=== PATIENT | female | born 1945 | race Caucasian/White ===

== ENCOUNTER 2016-11-17 10:35 | Outpatient (RCR) | payer MEDICARE | END 2016-12-07 09:13 | disposition home or self-care (01) | PROVIDERS: ATTEND Internal Medicine | DX: M54.2 Cervicalgia (principal); M54.6 Pain in thoracic spine; Z91.81 History of falling ==

== ENCOUNTER → 2017-01-17 | Outpatient (CLI) | payer MEDICARE ==
--- OUTSIDE RECORDS SUMMARY | 2017-01-17 12:54 | XMS REPORT | Continuity of Care Document ---
Author Author [facility] Organization [facility] Address Unknown Phone Unavailable Allergies Active Description Code Type Severity Reaction Onset Reported/Identified Relationship to Patient Clinical Status Yes ERTHROMYCIN' ERTHROMYCIN' Unknown N/A 08/07/2012 Yes SULFA SULFA Unknown N/A 08/07/2012 Medications Problems Date Dx Coded Attending Type Code Diagnosis Diagnosed By JEFFREY VALENTIN, EVELIN Byrd Ot M54.5 LOW BACK PAIN EVELIN MURPHY MD, Ot M54.6 PAIN IN THORACIC SPINE EVELIN MURPHY MD Ot Z47.89 ENCOUNTER FOR OTHER ORTHOPEDIC AFTERCARE EVELIN MURPHY MD Ot M54.2 CERVICALGIA EVELIN MURPHY MD Ot M54.6 PAIN IN THORACIC SPINE JEFFREY VALENTIN, EVELIN Byrd Ot Z91.81 HISTORY OF FALLING 2015 JEFFREY VALENTIN, EVELIN Byrd Ot 789.02 2015 TIFF MURPHY Ot 793.82 2015 TIFF MURPHY Ot V76.12 2015 EVELIN MURPHY MD Ot 793.80 2015 EVELIN MURPHY MD Ot 793.80 2015 EVELIN MURPHY MD Ot 793.89 12/25/2015 EVELIN MURPHY MD Ot M85.80 01/30/2016 DAYNA SINGH DO Ot M67.431 02/12/2016 DAYNA SINGH DO Ot M67.431 07/14/2016 EVELIN MURPHY MD Ot 789.02 ABDOMINAL PAIN, LEFT UPPER QUADRANT 07/14/2016 TIFF MURPHY Ot 793.82 INCONCLUSIVE MAMMOGRAM 07/14/2016 TIFF MURPHYP Ot V76.12 OTH SCREEN MAMMO-MALIGN NEOPLASM OF SHAYAN 07/14/2016 EVELIN MURPHY MD Ot 793.80 UNSPEC ABNORMAL MAMMOGRAM 07/14/2016 EVELIN MURPHY MD Ot 793.80 UNSPEC ABNORMAL MAMMOGRAM 07/14/2016 EVELIN MURPHY MD Ot 793.89 OTH (ABN) FINDINGS ON RADIOLOGICAL EXAMI 07/14/2016 EVELIN MURPHY MD Ot M85.80 OTH DISRD OF BONE DENSITY AND STRUCTURE, 07/14/2016 FRANCISCO DIOR, DAYNA F Ot M67.431 GANGLION, RIGHT WRIST 08/12/2016 EVELIN MURPHY MD Ot M54.5 LOW BACK PAIN 08/12/2016 EVELIN MURPHY MD, Ot M54.6 PAIN IN THORACIC SPINE 08/12/2016 EVELIN MURPHY MD Ot Z47.89 ENCOUNTER FOR OTHER ORTHOPEDIC AFTERCARE 08/23/2016 EVELIN MURPHY MD Ot M54.5 LOW BACK PAIN 08/23/2016 EVELIN MURPHY MD, Ot M54.6 PAIN IN THORACIC SPINE 08/23/2016 EVELIN MURPHY MD Ot Z47.89 ENCOUNTER FOR OTHER ORTHOPEDIC AFTERCARE 11/12/2016 EVELIN MURPHY MD Ot M54.2 CERVICALGIA 11/12/2016 EVELIN MURPHY MD Ot M54.6 PAIN IN THORACIC SPINE 11/12/2016 EVELIN MURPHY MD Ot Z91.81 HISTORY OF FALLING 11/25/2016 EVELIN MURPHY MD Ot K76.9 LIVER DISEASE, UNSPECIFIED 11/25/2016 EVELIN MURPHY MD Ot M54.9 DORSALGIA, UNSPECIFIED 11/25/2016 EVELIN MURPHY MD Ot S22.060A WEDGE COMPRESSION FRACTURE OF T7-T8 VERT 11/25/2016 EVELIN MURPHY MD Ot W19.XXXA UNSPECIFIED FALL, INITIAL ENCOUNTER 12/07/2016 EVELIN MURPHY MD Ot M54.2 CERVICALGIA 12/07/2016 EVELIN MURPHY MD Ot M54.6 PAIN IN THORACIC SPINE 12/07/2016 EVELIN MURPHY MD Ot Z91.81 HISTORY OF FALLING 12/13/2016 EVELIN MURPHY MD Ot K76.9 LIVER DISEASE, UNSPECIFIED 12/13/2016 EVELIN MURPHY MD Ot M54.9 DORSALGIA, UNSPECIFIED 12/13/2016 EVELIN MURPHY MD Ot S22.060A WEDGE COMPRESSION FRACTURE OF T7-T8 VERT 12/13/2016 EVELIN MURPHY MD Ot W19.XXXA UNSPECIFIED FALL, INITIAL ENCOUNTER 12/20/2016 JEFFREY VALENTIN, EVELIN Byrd Ot K76.9 LIVER DISEASE, UNSPECIFIED 12/20/2016 EVELIN MURPHY MD Ot M54.9 DORSALGIA, UNSPECIFIED 12/20/2016 EVELIN MURPHY MD Ot S22.060A WEDGE COMPRESSION FRACTURE OF T7-T8 VERT 12/20/2016 EVELIN MURPHY MD Ot W19.XXXA UNSPECIFIED FALL, INITIAL ENCOUNTER Procedures Results Encounters ACCT No. Visit Date/Time Discharge Status Pt. Type Provider Facility Loc./Unit Complaint [id number] 11/17/2016 10:35:00 2016 09:13:00 DIS Outpatient EVELIN MURPHY MD [facility] REHAB UPPER BACK PAIN AND CERVICALGIA POST FALL [id number] 08/09/2016 10:38:00 2015 08:54:00 DIS Outpatient EVELIN MURPHY MD [facility] REHAB THORACIC/LUMBAR PAIN;R CARPAL TUNNEL REHAB [id number] 01/30/2014 09:07:00 2013 23:59:59 CLS Outpatient EVELIN MURPHY MD [facility] RAD 6 MONTH F/U [id number] 08/29/2013 08:15:00 2012 23:59:59 CLS Outpatient EVELIN MURPHY MD [facility] RAD ABN MAMMO [id number] 08/27/2013 07:56:00 2012 23:59:59 CLS Outpatient EVELIN MURPHY MD [facility] RAD ABNORMAL MAMMO [id number] 08/17/2013 14:04:00 2012 23:59:59 CLS Outpatient TIFF MURPHY [facility] RAD SCREENING [id number] 05/10/2013 09:13:00 2012 23:59:59 CLS Outpatient EVELIN MURPHY MD [facility] RAD LEFT UPPER QUAD ABD PAIN [id number] 01/04/2017 10:54:00 PEN [facility]read[facility] [id number] 11/19/2016 09:16:00 ACT Outpatient EVELIN MURPHY MD [facility] RAD MID BACK PAIN [id number] 01/09/2016 14:44:00 ACT Outpatient DAYNA SINGH DO [facility] RAD R WRIST GANGLION CYST [id number] 2015 10:49:00 ACT Outpatient JEFFREY VALENTIN, EVELIN Byrd [facility] RAD RISK FACTORS OSTEOPOROSIS
== END ==
LOC: LAB 12:50
PROVIDERS: ATTEND Internal Medicine
DX: E55.9 Vitamin D deficiency, unspecified (principal)
CPT/HCPCS: 36415; 82306

== ENCOUNTER → 2017-03-07 | Outpatient (CLI) | payer MEDICARE, OTHER ==
--- NOTE | 2017-03-07 13:13 | Diagnostic Imaging Report ---
PROCEDURE: US Thyroid. TECHNIQUE: Multiple real-time grayscale images were obtained of the thyroid in various projections. INDICATION: Followup Graves' disease. COMPARISON: None. DISCUSSION: Sonographic evaluation of the anterior neck was performed. The thyroid gland is normal in size measuring 3.5 x 1.9 x 1.5 cm on the right and 4.1 x 1.6 x 1.7 cm on the left. The thyroid gland is mildly heterogenous and hypervascular. There is a solid isoechoic nodule within the left thyroid gland measuring 0.9 cm with internal calcifications, likely coarse calcifications. Nodule is too small for ultrasound guided biopsy at this time. At a minimum, recommend 6 month sonographic followup to document stability. A nuclear medicine thyroid uptake scan could also be performed. No abnormal adjacent lymph nodes identified. IMPRESSION: 1. 9 mm solid nodule with internal calcifications within the left thyroid gland, indeterminate. See above recommendations. Dictated by: Dictated on workstation # [id number]
== END ==
LOC: RAD 12:11
PROVIDERS: ATTEND Surgery
DX: E05.00 Thyrotoxicosis with diffuse goiter without thyrotoxic crisis or storm (principal)
CPT/HCPCS: 76536

== ENCOUNTER → 2017-03-12 | Outpatient (CLI) | payer MEDICARE, OTHER | LOC: LABNPT 14:45 | PROVIDERS: ATTEND Nurse Practitioner Family | DX: R30.0 Dysuria (principal); R82.99 Other abnormal findings in urine | CPT/HCPCS: 87088; 87186 ==

== ENCOUNTER 2017-03-25 11:15 | Outpatient (RCR) | payer MEDICARE | END 2017-03-25 12:13 | disposition home or self-care (01) | PROVIDERS: ATTEND Orthopaedic Surgery | DX: M54.6 Pain in thoracic spine (principal) ==

== ENCOUNTER → 2017-03-31 | Outpatient (CLI) | payer MEDICARE | LOC: LAB 09:04 | PROVIDERS: ATTEND Internal Medicine | DX: N39.0 Urinary tract infection, site not specified (principal) ==

== ENCOUNTER → 2017-03-31 | Outpatient (CLI) | payer MEDICARE, OTHER ==
[2017-03-31 09:36] LABS: BILIRUBIN,URINE NEGATIVE (NEGATIVE); KETONES,URINE NEGATIVE (NEGATIVE); LEUKOCYTE ESTERASE ,URINE 2+ (NEGATIVE); NITRITE,URINE NEGATIVE (NEGATIVE); PH,URINE 6 (5-9); PROTEIN,URINE NEGATIVE (NEGATIVE); UROBILINOGEN,URINE NORMAL (NORMAL)
== END ==
LOC: LAB 08:59
PROVIDERS: ATTEND Surgery
DX: R94.6 Abnormal results of thyroid function studies (principal); E05.00 Thyrotoxicosis with diffuse goiter without thyrotoxic crisis or storm
CPT/HCPCS: 36415; 81000; 84436; 84443; 84480; 87088

== ENCOUNTER → 2017-04-26 | Outpatient (CLI) | payer MEDICARE ==
[~2017-04-26] VITALS: Ht 162.6 cm; Wt 61.7 kg
[~2017-04-26] MED LIST: LIDOCAINE 1% INJ 20 ML (XYLOCAINE) VIAL INJ ONE
[2017-04-26 12:54] VITALS: BP 122/80
[2017-04-26 13:18] VITALS: BP 120/80
--- NOTE | 2017-04-26 14:28 | Diagnostic Imaging Report ---
EXAMINATION: US-guided fine needle biopsy-thyroid. INDICATION: Left thyroid nodule. CONSENT: Informed consent was obtained from the patient. The risks, benefits, potential complications and alternatives were reviewed and all questions answered to the patient's satisfaction. FINDINGS: Heterogenous 9 mm left thyroid nodule with the suggestion of calcifications PROCEDURE: After sterile preparation and draping, 1% lidocaine was utilized for local anesthesia. A 25-gauge hypodermic needle is introduced into the left thyroid nodule under live ultrasound guidance. After confirming adequate positioning with saved ultrasound images, multiple passes of fine needle aspiration is performed and repeated 4 times. The patient tolerated the procedure well with no immediate complications. IMPRESSION: Successful US-guided fine needle aspiration biopsy of left thyroid nodule. Dictated by: Dictated on workstation # [id number]
== END ==
LOC: RAD 12:40
PROVIDERS: ATTEND Surgery
DX: E04.1 Nontoxic single thyroid nodule (principal)
CPT/HCPCS: 76942

== ENCOUNTER 2017-05-11 12:11 | Outpatient (CLI) | payer MEDICARE ==
[~2017-05-11] VITALS: Ht 162.6 cm; Wt 62.9 kg
[2017-05-11] MEDS ORDERED: PROP20TA5 PO (12:28)
[2017-05-11] MEDS ORDERED: FLUV100T3 PO (12:28)
[2017-05-11] MEDS ORDERED: LORA1TAB PO (12:28)
[2017-05-11] MEDS ORDERED: PROP60CA PO (12:28)
[2017-05-11] MEDS ORDERED: NF-METHI10 PO (12:28)
[2017-05-11 12:35] VITALS: BP 126/69
[2017-05-11 13:10] LABS: BASOPHILS % (AUTO) 0 % (0-10); EOSINOPHILS % (AUTO) 0 % (0-10); LYMPHOCYTES # (AUTO) 3.1 X 10^3 (1.0-4.0); LYMPHOCYTES % (AUTO) 38 % (12-44); MEAN CORPUSCULAR HEMOGLOBIN 29 PG (25-34); MEAN CORPUSCULAR HGB CONC 34 G/DL (32-36); MEAN CORPUSCULAR VOLUME 84 FL (80-99); MEAN PLATELET VOLUME 9.4 FL (7.4-10.4); MONOCYTES # (AUTO) 0.8 X 10^3 (0.0-1.0); MONOCYTES % (AUTO) 9 % (0-12); NEUTROPHILS # (AUTO) 4.2 X 10^3 (1.8-7.8); NEUTROPHILS % (AUTO) 52 % (42-75); PLATELET COUNT 283 10^3/uL (130-400); RED BLOOD COUNT 4.56 10^6/uL (4.35-5.85); RED CELL DISTRIBUTION WIDTH 17.2 % (10.0-14.5); WHITE BLOOD COUNT 8.1 10^3/uL (4.3-11.0)
[2017-05-11 13:29] LABS: ANION GAP 8 MMOL/L (5-14); BLOOD UREA NITROGEN 10 MG/DL (7-18); BUN/CREATININE RATIO 12 (0-20); CALCIUM 9.3 MG/DL (8.5-10.1); CARBON DIOXIDE 25 MMOL/L (21-32); CHLORIDE 101 MMOL/L (98-107); CREATININE SERUM 0.84 MG/DL (0.60-1.30); GFR ESTIMATED > 60; GLUCOSE 92 MG/DL (70-105); HEMOLYSIS 7 (-100-29); ICTERUS 0.7 (-100-1.9); LIPEMIA 37 (-100-49); POTASSIUM 4.2 MMOL/L (3.6-5.0); SODIUM 134 MMOL/L (135-145)
== END 2017-05-11 13:58 | disposition home or self-care (01) ==
LOC: PREOP 12:11
PROVIDERS: ATTEND Surgery
DX: Z01.812 Encounter for preprocedural laboratory examination (principal); Z11.2 Encounter for screening for other bacterial diseases; R94.6 Abnormal results of thyroid function studies
CPT/HCPCS: 36415; 80048; 85025; 87081

== ENCOUNTER 2017-05-18 16:00 | Day surgery (SDC) | payer MEDICARE ==
[~2017-05-18] VITALS: Ht 162.6 cm; Wt 71.2 kg
[2017-05-18 11:00] VITALS: BP 142/88
--- NOTE | 2017-05-18 11:11 | Progress Note-Pre Operative ---
Pre-Operative Progress Note H&P Reviewed The H&P was reviewed, patient examined and no changes noted. Date Seen by Provider: May 18, 2017 Time Seen by Provider: 11:10 Date H&P Reviewed: May 18, 2017 Time H&P Reviewed: 11:10 Pre-Operative Diagnosis: thyroid nodules KRZYSZTOF HARRISON MD May 18, 2017 11:11 am
[2017-05-18] MEDS: LACTATED RINGERS 1,000 ML IV PRN ×3 (11:44→14:36)
--- NOTE | 2017-05-18 14:41 | Operative Report ---
Operative Report Date of Procedure/Surgery May 18, 2017 Surgeon (s) KRZYSZTOF HARRISON MD [employer] Laborer (s): nonapplicable Post-Operative Diagnosis 1. Controlled thyrotoxicosis 2. Left thyroid nodule Procedure Performed Total thyroidectomy Intraoperative nerve monitoring Description of Procedure Anesthesia Type: General Estimated blood loss (mL): 30 mL Specimen(s) collected/removed Both lobes of thyroid Description of the Procedure Indication for procedure: This lady was found to be thyrotoxic with a left solid thyroid nodule. Following antithyroid therapy, euthyroid status was achieved. She was offered radioactive iodine ablation but she requested thyroidectomy; this appeared to be reasonable. Biopsy of the left thyroid nodule was negative for any malignancy. Informed consent was obtained after reviewing the operative details and palpitations a postoperative hematoma, hypocalcemia and transient hoarseness of voice. Description of procedure: She was placed supine on the operative table and general anesthesia induced using an endotracheal tube. 1 g of Ancef was administered intravenously as prophylaxis against wound infection. Sequential compression devices were placed around her legs, to minimize the risk of venous thrombosis. Her neck and upper chest were prepared and draped in the usual sterile manner. Pre-emptive analgesia was achieved using quarter percent Marcaine with epinephrine. A 3 cm transverse incision was made along the skin crease of the neck and platysma incised transversely. Cervical fascia was incised vertically and the strap muscles were retracted laterally. I began the dissection on the left side. The lobe was retracted medially, displaying a distinct middle thyroid vein. It was controlled using Harmonic scalpel. Superior thyroid artery was then controlled using 0 silk sutures, reinforced with a Ligaclip. Multiple branches of the inferior thyroid artery were controlled using ligaclips and Harmonic scalpel, protecting the recurrent laryngeal nerve throughout the procedure. This maneuver was accomplished by constant visual inspection and intermittent nerve stimulation. I was able to identify and preserve both parathyroid glands on the left side, along with their blood supply. The isthmus was then divided and the left lobe sent for histologic examination separately. A similar dissection was performed on the right side. The recurrent laryngeal nerve was found in its conventional position, branching rather proximally. The main trunk and the bronchus with protected throughout by visual inspection and intermittent nerve stimulation. I was able to identify and preserve 1 parathyroid gland, possibly superior in nature. We had the anesthesiologist conduct Valsalva maneuver, looking for any venous bleeding. One area close to the entry of the recurrent laryngeal nerve into the larynx was identified and managed by a Ligaclip, carefully protecting the nerve. Gelfoam, soaked in thrombin solution was placed along the tracheoesophageal groove, to optimize hemostasis. Neck was then flexed, in preparation for closure. Cervical fascia was approximated using 3-0 Vicryl and platysma using the same material. Skin was closed using 4-0 Vicryl, in a subcuticular fashion. She tolerated the procedure well, was extubated in the operating room and taken to the recovery room in a stable condition. [place], sponges and instruments were correct at the end of the operation Findings of the Procedure Vascular lobes of thyroid Allergies and Home Medications Allergies Coded Allergies: ciprofloxacin (Verified Allergy, Intermediate, RASH, 05/11/17) erythromycin base (Verified Allergy, Intermediate, RASH, 05/11/17) nitrofurantoin (Verified Allergy, Intermediate, GI UPSET, 05/11/17) Uncoded Allergies: SULFA (Allergy, Intermediate, GI UPSET, 05/11/17) Home Medications Fluvoxamine Maleate 100 Mg Tablet, 100 MG PO DAILY, (Reported) Lorazepam 1 Mg Tablet, 3 MG PO HS, (Reported) Methimazole 10 Mg Tab, 20 MG PO BID, (Reported) Propranolol HCl 20 Mg Tablet, 20 MG PO HS, (Reported) Propranolol HCl 60 Mg Cap.sa.24h, 60 MG PO DAILY, (Reported) KRZYSZTOF HARRISON MD May 18, 2017 2:41 pm
--- NOTE | 2017-05-18 14:45 | Discharge Inst-Simple/Standard ---
Discharge Inst-Standard Discharge Medications New, Converted or Re-Newed RX: RX on Chart Patient Instructions/Follow Up Plan of Care/Instructions/FU: Dressings off in a.m. Follow-up in 3 weeks Activity as Tolerated: Yes Discharge Diet: No Restrictions KRZYSZTOF HARRISON MD May 18, 2017 2:45 pm
[2017-05-18] MEDS: LACTATED RINGERS 1,000 ML IV SCH (15:09)
[2017-05-18] MEDS: morphine INJ 10 MG/ML 1ML (SYR OR VIAL) IVP PRN ×2 (15:20→15:25)
[~2017-05-18 16:00] MED LIST changes: +BUP/EPI 0.25% 1:200,000 (MARCAINE) 10 ML VIAL IJ ONE; +DEXAMETHASONE PF 10 MG/ML (DECADRON) VIAL ONE; +FAMOTIDINE 20MG/2ML IV (PEPCID) IV ONE; +FLUV100T3 PO; +HYDR-3812 PO; +LACTATED RINGERS 1,000 ML IV ONE; -LIDOCAINE 1% INJ 20 ML (XYLOCAINE) VIAL INJ ONE; +LIDOCAINE PF 2% 5 ML (XYLOCAINE) VIAL ONE; +LORA1TAB PO; +MIDAZOLAM 2 MG/2 ML (VERSED) VIAL ONE; +NF-METHI10 PO; +ONDANSETRON 4 MG/2 ML (SDV) Z0FRAN IVP PRN; +ONDANSETRON 4 MG/2 ML (SDV) Z0FRAN ONE; +PROP20TA5 PO; +PROP60CA PO; +ROCURONIUM 50 MG/5 ML (ZEMURON) VIAL IV ONE; +SEVOFLURANE (ULTANE) 15 ML INHAL SOLN ONE; +SUCCINYLCHOLINE INJ 100 MG/5 ML SYR ONE; +THROMBIN SPRAY KIT 5,000 UNIT VIAL ONE; +ceFAZolin 1 GM/NS 50 ML IVPB IV ONE; +fentaNYL INJECTION 100 MCG/2 ML AMP IVP PRN; +fentaNYL INJECTION 100 MCG/2 ML AMP ONE; +proPOfol 200 MG/20 ML (DIPRIVAN) VIAL IV ONE
[2017-05-18 16:05] VITALS: BP 143/81
--- OUTSIDE RECORDS SUMMARY | 2017-05-18 17:01 | XMS REPORT | Continuity of Care Document ---
Author Author [facility] Organization [facility] Address Unknown Phone Unavailable Allergies Active Description Code Type Severity Reaction Onset Reported/Identified Relationship to Patient Clinical Status Yes ERTHROMYCIN' ERTHROMYCIN' Unknown N/A 08/07/2012 Yes SULFA SULFA Unknown N/A 08/07/2012 Yes ciprofloxacin [id number] Drug Allergy Moderate RASH 05/11/2017 Yes erythromycin base [id number] Drug Allergy Moderate RASH 05/11/2017 Yes nitrofurantoin [id number] Drug Allergy Moderate GI UPSET 05/11/2017 Yes SULFA SULFA Moderate GI UPSET 05/11/2017 Medications Problems Date Dx Coded Attending Type Code Diagnosis Diagnosed By EVELIN MURPHY MD Ot M54.5 LOW BACK PAIN EVELIN MURPHY MD Ot M54.6 PAIN IN THORACIC SPINE EVELIN MURPHY MD Ot Z47.89 ENCOUNTER FOR OTHER ORTHOPEDIC AFTERCARE EVELIN MURPHY MD Ot M54.2 CERVICALGIA EVELIN MURPHY MD Ot M54.6 PAIN IN THORACIC SPINE EVELIN MURPHY MD Ot Z91.81 HISTORY OF FALLING 10/20/1212 JA FRANCO DO Ot M54.6 PAIN IN THORACIC SPINE 2015 EVELIN MURPHY MD Ot 789.02 2015 TIFF MURPHY Ot 793.82 2015 TIFF MURPHY Ot V76.12 2015 EVELIN MURPHY MD Ot 793.80 2015 EVELIN MURPHY MD Ot 793.80 2015 EVELIN MURPHY MD Ot 793.89 12/25/2015 EVELIN MURPHY MD Ot M85.80 01/30/2016 DAYNA SINGH DO Ot M67.431 02/12/2016 FRANCISCODAYNA PAUL DO Ot M67.431 07/14/2016 JEFFREY VALENTIN, EVELIN Byrd Ot 789.02 ABDOMINAL PAIN, LEFT UPPER QUADRANT 07/14/2016 JEFFREY TIFF Emmanuel FLOWERS SALESPERSON Ot 793.82 INCONCLUSIVE MAMMOGRAM 07/14/2016 TIFF MURPHY Emmanuel FLOWERS SALESPERSON Ot V76.12 OTH SCREEN MAMMO-MALIGN NEOPLASM OF SHAYAN 07/14/2016 EVELIN MURPHY MD Ot 793.80 UNSPEC ABNORMAL MAMMOGRAM 07/14/2016 EVELIN MURPHY MD Ot 793.80 UNSPEC ABNORMAL MAMMOGRAM 07/14/2016 EVELIN MURPHY MD Ot 793.89 OTH (ABN) FINDINGS ON RADIOLOGICAL EXAMI 07/14/2016 EVELIN MURPHY MD Ot M85.80 OTH DISRD OF BONE DENSITY AND STRUCTURE, 07/14/2016 FRANCISCO DAYNA DIOR Ot M67.431 GANGLION, RIGHT WRIST 08/12/2016 EVELIN MURPHY MD Ot M54.5 LOW BACK PAIN 08/12/2016 EVELIN MURPHY MD Ot M54.6 PAIN IN THORACIC SPINE 08/12/2016 EVELIN MURPHY MD Ot Z47.89 ENCOUNTER FOR OTHER ORTHOPEDIC AFTERCARE 08/23/2016 EVELIN MURPHY MD Ot M54.5 LOW BACK PAIN 08/23/2016 EVELIN MURPHY MD Ot M54.6 PAIN IN THORACIC SPINE 08/23/2016 EVELIN MURPHY MD Ot Z47.89 ENCOUNTER FOR OTHER ORTHOPEDIC AFTERCARE 09/03/2016 EVELIN MURPHY MD Ot M54.5 LOW BACK PAIN 09/03/2016 EVELIN MURPHY MD Ot M54.6 PAIN IN THORACIC SPINE 09/03/2016 EVELIN MURPHY MD Ot Z47.89 ENCOUNTER FOR [...] WEDGE COMPRESSION FRACTURE OF T7-T8 VERT 11/25/2016 JEFFREY VALENTIN, EVELIN Byrd Ot W19.XXXA UNSPECIFIED FALL, INITIAL ENCOUNTER 12/07/2016 JEFFREY VALENTIN, EVELIN Byrd Ot M54.2 CERVICALGIA 12/07/2016 EVELIN MURPHY MD Ot M54.6 PAIN IN THORACIC SPINE 12/07/2016 JEFFREY VALENTIN, EVELIN Byrd Ot Z91.81 HISTORY OF FALLING 12/13/2016 EVELIN MURPHY MD Ot K76.9 LIVER DISEASE, UNSPECIFIED 12/13/2016 EVELIN MURPHY MD Ot M54.9 DORSALGIA, UNSPECIFIED 12/13/2016 EVELIN MURPHY MD Ot S22.060A WEDGE COMPRESSION FRACTURE OF T7-T8 VERT 12/13/2016 JEFFREY VALENTIN, EEVLIN Byrd Ot W19.XXXA UNSPECIFIED FALL, INITIAL ENCOUNTER 12/20/2016 EVELIN MURPHY MD Ot K76.9 LIVER DISEASE, UNSPECIFIED 12/20/2016 EVELIN MURPHY MD Ot M54.9 DORSALGIA, UNSPECIFIED 12/20/2016 EVELIN MURPHY MD Ot S22.060A WEDGE COMPRESSION FRACTURE OF T7-T8 VERT 12/20/2016 EVELIN MURPHY MD Ot W19.XXXA UNSPECIFIED FALL, INITIAL ENCOUNTER 01/17/2017 JEFFREY VALENTIN, EVELIN Byrd Ot 789.02 ABDOMINAL PAIN, LEFT UPPER QUADRANT 01/17/2017 TIFF MURPHY FLOWERS SALESPERSON Ot 793.82 INCONCLUSIVE MAMMOGRAM 01/17/2017 TIFF MURPHY FLOWERS SALESPERSON Ot V76.12 OTH SCREEN MAMMO-MALIGN NEOPLASM OF SHAYAN 01/17/2017 EVELIN MURPHY MD Ot 793.80 UNSPEC ABNORMAL MAMMOGRAM 01/17/2017 EVELIN MURPHY MD Ot 793.80 UNSPEC ABNORMAL MAMMOGRAM 01/17/2017 EVELIN MURPHY MD Ot 793.89 OTH (ABN) FINDINGS ON RADIOLOGICAL EXAMI 01/17/2017 EVELIN MURPHY MD Ot M85.80 OTH DISRD OF BONE DENSITY AND STRUCTURE, 01/17/2017 DAYNA SINGH DO Ot M67.431 GANGLION, RIGHT WRIST 01/17/2017 EVELIN MURPHY MD Ot K76.9 LIVER DISEASE, UNSPECIFIED 01/17/2017 EVELIN MURPHY MD Ot M54.9 DORSALGIA, UNSPECIFIED 01/17/2017 EVELIN MURPHY MD Ot S22.060A WEDGE COMPRESSION FRACTURE OF T7-T8 VERT 01/17/2017 EVELIN MURPHY MD Ot W19.XXXA UNSPECIFIED FALL, INITIAL ENCOUNTER 02/08/2017 EVELIN MURPHY MD Ot E55.9 VITAMIN D DEFICIENCY, UNSPECIFIED 02/10/2017 JA FRANCO DO Ot M54.6 PAIN IN THORACIC SPINE 02/18/2017 JA FRANCO DO Ot M54.6 PAIN IN THORACIC SPINE 03/09/2017 HUNTER VALENTIN, KRZYSZTOF Romo Ot E05.00 THYROTOXICOSIS W DIFFUSE GOITER W/O THYR 03/17/2017 MCCANUJ LANGLEY FLOWERS SALESPERSON Ot R30.0 DYSURIA 03/17/2017 ANUJ BERMUDEZ FLOWERS SALESPERSON Ot R82.99 OTHER ABNORMAL FINDINGS IN URINE 03/18/2017 JA FRANCO DO Ot M54.6 PAIN IN THORACIC SPINE 03/23/2017 MCCANUJ LANGLEY FLOWERS SALESPERSON Ot R30.0 DYSURIA 03/23/2017 ANUJ BERMUDEZ FLOWERS SALESPERSON Ot R82.99 OTHER ABNORMAL FINDINGS IN URINE 03/25/2017 JA FRANCO DO Demetrius Ot M54.6 PAIN IN THORACIC SPINE 04/05/2017 HUNTER VALENTIN, KRZYSZTOF Romo Ot E05.00 THYROTOXICOSIS W DIFFUSE GOITER W/O THYR 04/21/2017 KRZYSZTOF HARRISON MD Ot E05.00 THYROTOXICOSIS W DIFFUSE GOITER W/O THYR 04/21/2017 KRZYSZTOF HARRISON MD Ot R94.6 ABNORMAL RESULTS OF THYROID FUNCTION LUCAS 05/06/2017 EVELIN MURPHY MD Ot E55.9 VITAMIN D DEFICIENCY, UNSPECIFIED 05/06/2017 EVELIN MURPHY MD Ot N39.0 URINARY TRACT INFECTION, SITE NOT SPECIF 05/06/2017 KRZYSZTOF HARRISON MD Ot E04.1 NONTOXIC SINGLE THYROID NODULE Procedures Results Test Result Range 25-hydroxyvitamin D measurement - 01/17/17 13:05 25-hydroxy vitamin D measurement 34 % 30- 100 Bacterial urine culture - 03/12/17 14:45 Bacterial urine culture [id number] NRG COLONY COUNT 10,000/ML - 100,000/ML NRG FTX;REPORTABLE MIXED GRAM POSITIVE YONG <10,000/ML NRG Bacterial susceptibility panel - 03/12/17 14:45 Gentamicin susceptibility test by minimum inhibitory concentration <= NRG Trimethoprim/sulfamethoxazole susceptibility test by minimum inhibitoryconcentration <= NRG Tobramycin susceptibility test by minimum inhibitory concentration <= NRG Cefazolin susceptibility test by minimum inhibitory concentration <= NRG Ceftriaxone susceptibility test by minimum inhibitory concentration <= NRG Piperacillin/tazobactam susceptibility test by minimum inhibitory concentration <= NRG Ciprofloxacin susceptibility test by minimum inhibitory concentration <= NRG Meropenem susceptibility test by minimum inhibitory concentration <= NRG Nitrofurantoin susceptibility test by minimum inhibitory concentration 32 NRG Aztreonam susceptibility test by minimum inhibitory concentration <= NRG Bacterial urine culture - 03/31/17 09:26 URINE CULTURE RESULTS <10,000/ML NR Complete blood count (CBC) with automated white blood cell (WBC) differential - 05/11/17 12:45 Blood leukocytes automated count (number/volume) 8.1 10*3/ uL 4.3-11.0 Blood erythrocytes automated count (number/volume) 4.56 10*6 /uL 4.35-5.85 Venous blood hemoglobin measurement (mass/volume) 13.0 g/dL 11.5-16.0 Blood hematocrit (volume fraction) 38 % 35-52 Automated erythrocyte mean corpuscular volume 84 [foz_us] 80-99 Automated erythrocyte mean corpuscular hemoglobin (mass per erythrocyte) 29 pg 25-34 Automated erythrocyte mean corpuscular hemoglobin concentration measurement ( mass/volume) 34 g/dL 32-36 Automated erythrocyte distribution width ratio 17.2 % 10.0-14.5 Automated blood platelet count (count/volume) 283 10*3/uL 130-400 Automated blood platelet mean volume measurement 9.4 [foz_us ] 7.4-10.4 Automated blood neutrophils/100 leukocytes 52 % 42-75 Automated blood lymphocytes/100 leukocytes 38 % 12-44 Blood monocytes/100 leukocytes 9 % 0-12 Automated blood eosinophils/100 leukocytes 0 % 0-10 Automated blood basophils/100 leukocytes 0 % 0-10 Blood neutrophils automated count (number/volume) 4.2 10*3 1.8-7.8 Blood lymphocytes automated count (number/volume) 3.1 10*3 1.0-4.0 Blood monocytes automated count (number/volume) 0.8 10*3 0.0-1.0 Automated eosinophil count 0.0 10*3/uL 0.0-0.3 Automated blood basophil count (count/volume) 0.0 10*3/uL 0.0-0.1 Whole blood basic metabolic panel - 05/11/17 12:45 Serum or plasma sodium measurement (moles/volume) 134 mmol/ L 135-145 Serum or plasma potassium measurement (moles/volume) 4.2 mmol/L 3.6-5.0 Serum or plasma chloride measurement (moles/volume) 101 mmol /L 98-107 Carbon dioxide 25 mmol/L 21-32 Serum or plasma anion gap determination (moles/volume) 8 mmol/L 5-14 Serum or plasma urea nitrogen measurement (mass/volume) 10 mg/dL 7-18 Serum or plasma creatinine measurement (mass/volume) 0.84 mg /dL 0.60-1.30 Serum or plasma urea nitrogen/creatinine mass ratio 12 0-20 Serum or plasma creatinine measurement with calculation of estimated glomerular filtration rate > NRG Serum or plasma glucose measurement (mass/volume) 92 mg/dL 70-105 Serum or plasma calcium measurement (mass/volume) 9.3 mg/dL 8.5-10.1 Methicillin resistant Staphylococcus aureus (MRSA) screening culture - 12:45 Methicillin resistant Staphylococcus aureus (MRSA) screening culture NEG NRG Encounters ACCT No. Visit Date/Time Discharge Status Pt. Type Provider Facility Loc./Unit Complaint [id number] 05/11/2017 12:11:00 2016 13:58:00 DIS Outpatient KRZYSZTOF HARRISON MD [facility] PREOP HYPERACTIVE HYPOTHYROIDISM [id number] 03/25/2017 11:15:00 2016 12:13:00 DIS Outpatient JA FRANCO DO [facility] REHAB THORACIC PAIN [id number] 11/17/2016 10:35:00 2016 09:13:00 DIS Outpatient EVELIN MURPHY MD [facility] REHAB UPPER BACK PAIN AND CERVICALGIA POST FALL [id number] 08/09/2016 10:38:00 2015 08:54:00 DIS Outpatient EVELIN MURPHY MD [facility] REHAB THORACIC/LUMBAR PAIN;R CARPAL TUNNEL REHAB [id number] 01/30/2014 09:07:00 2013 23:59:59 CLS Outpatient EVELIN MURPHY MD [facility] RAD 6 MONTH F/U [id number] 08/29/2013 08:15:00 2012 23:59:59 CLS Outpatient EVELIN MURPHY MD [facility] RAD ABN MAMMO [id number] 08/27/2013 07:56:00 2012 23:59:59 CLS Outpatient EVELIN MUPRHY MD [facility] RAD ABNORMAL MAMMO [id number] 08/17/2013 14:04:00 2012 23:59:59 CLS Outpatient TIFF MURPHY [facility] RAD SCREENING [id number] 05/10/2013 09:13:00 2012 23:59:59 CLS Outpatient EVELIN MURPHY MD [facility] RAD LEFT UPPER QUAD ABD PAIN [id number] 05/31/2017 10:41:00 PEN Preadmit EVELIN MURPHY MD [facility] REHAB BACK PAIN [id number] 05/18/2017 12:45:00 PEN Preadmit KRZYSZTOF HARRISON MD [facility] SDC HYPERACTIVE THYROIDISM [id number] 04/26/2017 12:40:00 ACT Outpatient KRZYSZTOF HARRISON MD [facility] RAD LEFT THYROID NODULE [id number] 03/31/2017 09:04:00 ACT Outpatient EVELIN MURPHY MD [facility] LAB F/U UTI [id number] 03/31/2017 08:59:00 ACT Outpatient KRZYSZTOF HARRISON MD [facility] LAB GRAVES DISEASE [id number] 03/12/2017 14:45:00 ACT Outpatient ANUJ BERMUDEZ FLOWERS SALESPERSON [facility] LABNPT [id number] 03/07/2017 12:11:00 ACT Outpatient KRZYSZTOF HARRISON MD [facility] RAD THYROID GRAVES DISEASE [id number] 01/17/2017 12:50:00 ACT Outpatient EVELIN MURPHY MD [facility] LAB VITAMIN D DEFICIENCY [id number] 11/19/2016 09:16:00 ACT Outpatient EVELIN MURPHY MD [facility] RAD MID BACK PAIN [id number] 01/09/2016 14:44:00 ACT Outpatient DAYNA SINGH DO [facility] RAD R WRIST GANGLION CYST [id number] 2015 10:49:00 ACT Outpatient EVELIN MURPHY MD [facility] RAD RISK FACTORS OSTEOPOROSIS
[2017-05-18] MEDS ORDERED: METOCLOPRAMIDE INJ 10 MG/2 ML (REGLAN) IVP PRN (18:15)
[2017-05-18 19:40] VITALS: BP 133/73
[2017-05-18] MEDS: HYDROcodone/APAP 5 MG/325 MG (LORTAB) TAB PO PRN ×2 (19:45→23:45)
[2017-05-18] MEDS ORDERED: PROPRANOLOL 20 MG (INDERAL) TABLET PO SCH (21:00)
[2017-05-18] MEDS ORDERED: LORazepam 1 MG (ATIVAN) TAB PO SCH (21:00)
[2017-05-19 00:50] VITALS: BP 115/68
[2017-05-19] MEDS: LACTATED RINGERS 1,000 ML IV SCH (01:04)
[2017-05-19 04:13] VITALS: BP 115/68
[2017-05-19 04:16] VITALS: BP 112/58
[2017-05-19 07:08] LABS: ANION GAP 13 MMOL/L (5-14); BLOOD UREA NITROGEN 8 MG/DL (7-18); BUN/CREATININE RATIO 11; CALCIUM 8.5 MG/DL (8.5-10.1); CARBON DIOXIDE 20 MMOL/L (21-32); CHLORIDE 97 MMOL/L (98-107); CREATININE SERUM 0.73 MG/DL (0.60-1.30); GFR ESTIMATED > 60; GLUCOSE 132 MG/DL (70-105); POTASSIUM 4.2 MMOL/L (3.6-5.0); SODIUM 130 MMOL/L (135-145)
--- NOTE | 2017-05-19 07:35 | Progress Note-Standard ---
Standard Progress Note Progress Notes/Assess & Plan Date Seen by Provider: May 19, 2017 Time Seen by Provider: 07:33 Progress/Assessment & Plan Doing well. Vocal cord function normal. Calcium 8.5. Home Final Diagnosis Controlled thyrotoxicosis KRZYSZTOF HARRISON MD May 19, 2017 7:35 am
[2017-05-19 08:00] VITALS: BP 125/58
[2017-05-19] MEDS ORDERED: CALCIUM CARBONATE 500 MG (TUMS) TAB.CHEW PO SCH (09:00)
[2017-05-19] MEDS ORDERED: NON-FORMULARY MEDICATION 1 EA EA (Propranolol HCl (Propranolol HCl ER) 60 MG) PO SCH (09:00)
[2017-05-19 09:48] VITALS: BP 125/58
== END 2017-05-19 09:56 | disposition home or self-care (01) ==
LOC: 4TH 16:00 → SDC 16:00 → ENPENDDIS 05-19 10:00
PROVIDERS: ATTEND Surgery
DX: E05.10 Thyrotoxicosis with toxic single thyroid nodule without thyrotoxic crisis or storm (principal); F32.9 Major depressive disorder, single episode, unspecified; F41.9 Anxiety disorder, unspecified; K21.9 Gastro-esophageal reflux disease without esophagitis; Z79.899 Other long term (current) drug therapy
CPT/HCPCS: 36415; 80048

== ENCOUNTER → 2017-06-24 | Outpatient (CLI) | payer MEDICARE ==
[~2017-06-24] MED LIST changes: -BUP/EPI 0.25% 1:200,000 (MARCAINE) 10 ML VIAL IJ ONE; -DEXAMETHASONE PF 10 MG/ML (DECADRON) VIAL ONE; -FAMOTIDINE 20MG/2ML IV (PEPCID) IV ONE; -LACTATED RINGERS 1,000 ML IV ONE; -LIDOCAINE PF 2% 5 ML (XYLOCAINE) VIAL ONE; -MIDAZOLAM 2 MG/2 ML (VERSED) VIAL ONE; -ONDANSETRON 4 MG/2 ML (SDV) Z0FRAN IVP PRN; -ONDANSETRON 4 MG/2 ML (SDV) Z0FRAN ONE; -ROCURONIUM 50 MG/5 ML (ZEMURON) VIAL IV ONE; -SEVOFLURANE (ULTANE) 15 ML INHAL SOLN ONE; -SUCCINYLCHOLINE INJ 100 MG/5 ML SYR ONE; -THROMBIN SPRAY KIT 5,000 UNIT VIAL ONE; -ceFAZolin 1 GM/NS 50 ML IVPB IV ONE; -fentaNYL INJECTION 100 MCG/2 ML AMP IVP PRN; -fentaNYL INJECTION 100 MCG/2 ML AMP ONE; -proPOfol 200 MG/20 ML (DIPRIVAN) VIAL IV ONE
== END ==
LOC: LAB 11:44
PROVIDERS: ATTEND Surgery
DX: C73 Malignant neoplasm of thyroid gland (principal)
CPT/HCPCS: 36415; 84436; 84443; 84480

== ENCOUNTER → 2017-08-02 | Outpatient (CLI) | payer MEDICARE ==
[2017-08-02 08:27] LABS: PEP REPORT SEE PATH REPORT
[2017-08-02 08:28] LABS: BASOPHILS % (AUTO) 0 % (0-10); EOSINOPHILS # (AUTO) 0.2 10^3/uL (0.0-0.3); EOSINOPHILS % (AUTO) 2 % (0-10); LYMPHOCYTES # (AUTO) 2.9 X 10^3 (1.0-4.0); LYMPHOCYTES % (AUTO) 35 % (12-44); MEAN CORPUSCULAR HEMOGLOBIN 31 PG (25-34); MEAN CORPUSCULAR HGB CONC 34 G/DL (32-36); MEAN CORPUSCULAR VOLUME 90 FL (80-99); MONOCYTES # (AUTO) 0.7 X 10^3 (0.0-1.0); MONOCYTES % (AUTO) 9 % (0-12); NEUTROPHILS # (AUTO) 4.5 X 10^3 (1.8-7.8); NEUTROPHILS % (AUTO) 54 % (42-75); PLATELET COUNT 301 10^3/uL (130-400); RED CELL DISTRIBUTION WIDTH 14.4 % (10.0-14.5); WHITE BLOOD COUNT 8.3 10^3/uL (4.3-11.0)
[2017-08-02 09:04] LABS: ALANINE AMINOTRANSFERASE 16 U/L (0-55); ALBUMIN 4.2 GM/DL (3.2-4.5); ANION GAP 9 MMOL/L (5-14); ASPARTATE AMINO TRANSFERASE 19 U/L (5-34); BILIRUBIN,TOTAL 0.5 MG/DL (0.1-1.0); BLOOD UREA NITROGEN 8 MG/DL (7-18); BUN/CREATININE RATIO 10; CALCIUM 8.9 MG/DL (8.5-10.1); CARBON DIOXIDE 25 MMOL/L (21-32); CHLORIDE 98 MMOL/L (98-107); CREATININE SERUM 0.81 MG/DL (0.60-1.30); GFR ESTIMATED > 60; GLUCOSE 100 MG/DL (70-105); MAGNESIUM 2.1 MG/DL (1.8-2.4); PHOSPHORUS 3.6 MG/DL (2.3-4.7); POTASSIUM 4.2 MMOL/L (3.6-5.0); SODIUM 132 MMOL/L (135-145); TOTAL PROTEIN 6.9 GM/DL (6.4-8.2)
[2017-08-02 09:25] LABS: THYROID STIMULATING HORMONE 13.99 UIU/ML (0.35-4.94)
[2017-08-03 16:30] LABS: THYROGLOBULIN AUTOANTIBODY PT 0.07 Units (0.00-0.50)
[2017-08-04 06:40] LABS: THYROGLOBULIN LEVELC <0.20 ng/mL (1.60-59.90)
== END ==
LOC: LAB 08:04
PROVIDERS: ATTEND Internal Medicine Endocrinology, Diabetes & Metabolism
DX: E05.00 Thyrotoxicosis with diffuse goiter without thyrotoxic crisis or storm (principal); M81.0 Age-related osteoporosis without current pathological fracture; Z85.850 Personal history of malignant neoplasm of thyroid
CPT/HCPCS: 36415; 80053; 83735; 83970; 84100; 84155; 84165; 84432; 84443; 85025; 86800

== ENCOUNTER 2017-08-12 11:19 | Outpatient (RCR) | payer MEDICARE | END 2017-08-12 12:01 | disposition home or self-care (01) | PROVIDERS: ATTEND Internal Medicine | DX: M54.6 Pain in thoracic spine (principal) ==

== ENCOUNTER → 2017-08-19 | Outpatient (CLI) | payer MEDICARE ==
--- NOTE | 2017-08-22 09:33 | Diagnostic Imaging Report ---
Bilateral screening mammogram 2D views with tomosynthesis The current study was also evaluated with a Computer Aided Detection (CAD) system. INDICATION: Screening. No current complaints stated on the questionnaire. COMPARISON: 01/30/14 FINDINGS: The breasts are composed of scattered fibroglandular densities. There are scattered benign-appearing calcifications. Allowing for technique and positional differences, no suspicious change is seen. IMPRESSION: No significant change. ACR BI-RADS Category 2: Benign findings. Result letter will be mailed to the patient. Note: At least 10% of breast cancer is not imaged by mammography. Dictated by: Dictated on workstation # [id number]
== END ==
LOC: RAD 10:53
PROVIDERS: ATTEND Internal Medicine
DX: Z12.31 Encounter for screening mammogram for malignant neoplasm of breast (principal)
CPT/HCPCS: 77067

== ENCOUNTER → 2017-09-14 | Outpatient (CLI) | payer MEDICARE | LOC: LAB 13:23 | PROVIDERS: ATTEND Internal Medicine Endocrinology, Diabetes & Metabolism | DX: E89.0 Postprocedural hypothyroidism (principal); E05.00 Thyrotoxicosis with diffuse goiter without thyrotoxic crisis or storm; Z85.850 Personal history of malignant neoplasm of thyroid | CPT/HCPCS: 36415; 84443 ==

== ENCOUNTER → 2017-10-27 | Outpatient (CLI) | payer MEDICARE ==
--- NOTE | 2017-10-27 12:51 | Diagnostic Imaging Report ---
Examination: DEXA scan. Indication: Osteopenia Technique: Bone mineral density estimated based on dual energy radiography over the lumbar spine and femoral necks, was performed. Findings: The lumbar spine T-score is -1.6. This is 5.9% decreased density measurement compared to 12/04/2015 exam. T score over the left femoral neck is -1.2 and on the right side is -1.1. This is 0.8% decreased density measurement compared to 10/27/2017. Impression: Osteopenia.. Dictated by: Dictated on workstation # [id number]
== END ==
LOC: RAD 10:27
PROVIDERS: ATTEND Internal Medicine
DX: M85.852 Other specified disorders of bone density and structure, left thigh (principal); M85.88 Other specified disorders of bone density and structure, other site
CPT/HCPCS: 77080

== ENCOUNTER → 2018-01-13 | Outpatient (CLI) | payer MEDICARE ==
[~2018-01-13] MED LIST changes: +ACHD5005 PO; -HYDR-3812 PO
== END ==
LOC: LAB 12:10
PROVIDERS: ATTEND Internal Medicine Endocrinology, Diabetes & Metabolism
DX: E89.0 Postprocedural hypothyroidism (principal); M81.0 Age-related osteoporosis without current pathological fracture
CPT/HCPCS: 36415; 82306; 84443

== ENCOUNTER → 2018-04-13 | Outpatient (CLI) | payer MEDICARE ==
[2018-04-13 10:49] LABS: HEMOGLOBIN 12.7 G/DL (11.5-16.0); MEAN PLATELET VOLUME 9.5 FL (7.4-10.4); RED BLOOD COUNT 4.39 10^6/uL (4.35-5.85); RED CELL DISTRIBUTION WIDTH 14.9 % (10.0-14.5); WHITE BLOOD COUNT 6.6 10^3/uL (4.3-11.0)
== END ==
LOC: LAB 10:22
PROVIDERS: ATTEND Internal Medicine
DX: R53.83 Other fatigue (principal)
CPT/HCPCS: 36415; 82607; 85027; 85652

== ENCOUNTER → 2018-04-19 | Outpatient (CLI) | payer MEDICARE | LOC: LAB 11:35 | PROVIDERS: ATTEND Internal Medicine Endocrinology, Diabetes & Metabolism | DX: E89.0 Postprocedural hypothyroidism (principal) | CPT/HCPCS: 36415; 84443 ==

== ENCOUNTER → 2018-06-05 | Outpatient (CLI) | payer MEDICARE | LOC: CARD 10:57 | PROVIDERS: ATTEND Internal Medicine Interventional Cardiology | DX: I34.1 Nonrheumatic mitral (valve) prolapse (principal); R06.02 Shortness of breath | CPT/HCPCS: 93306 ==

== ENCOUNTER → 2018-06-07 | Outpatient (CLI) | payer MEDICARE ==
[2018-06-07 17:42] LABS: FREE T4 (FREE THYROXINE) 1.19 NG/DL (0.70-1.48)
== END ==
LOC: LAB 16:53
PROVIDERS: ATTEND Internal Medicine Endocrinology, Diabetes & Metabolism
DX: E89.0 Postprocedural hypothyroidism (principal)
CPT/HCPCS: 36415; 84439; 84443

== ENCOUNTER → 2018-06-07 | Outpatient (CLI) | payer MEDICARE ==
[2018-06-07 17:15] LABS: BILIRUBIN,URINE NEGATIVE (NEGATIVE); CLARITY,URINE CLEAR; COLOR,URINE YELLOW; GLUCOSE, URINE (UA) NEGATIVE (NEGATIVE); KETONES,URINE NEGATIVE (NEGATIVE); LEUKOCYTE ESTERASE ,URINE 3+ (NEGATIVE); NITRITE,URINE NEGATIVE (NEGATIVE); PH,URINE 7 (5-9); PROTEIN,URINE NEGATIVE (NEGATIVE); UROBILINOGEN,URINE NORMAL (NORMAL)
[2018-06-07 17:28] LABS: BACTERIA,URINE FEW /HPF; WBC,URINE 25-50 /HPF
== END ==
LOC: LAB 16:50
PROVIDERS: ATTEND Internal Medicine
DX: N39.0 Urinary tract infection, site not specified (principal)
CPT/HCPCS: 81000; 87077; 87088; 87186

== ENCOUNTER → 2018-09-16 | Outpatient (CLI) | payer MEDICARE ==
[2018-09-16 12:16] LABS: BILIRUBIN,URINE NEGATIVE (NEGATIVE); CLARITY,URINE CLEAR; COLOR,URINE YELLOW; GLUCOSE, URINE (UA) NEGATIVE (NEGATIVE); KETONES,URINE NEGATIVE (NEGATIVE); LEUKOCYTE ESTERASE ,URINE 3+ (NEGATIVE); NITRITE,URINE NEGATIVE (NEGATIVE); PH,URINE 6.5 (5-9); PROTEIN,URINE NEGATIVE (NEGATIVE); UROBILINOGEN,URINE NORMAL (NORMAL)
[2018-09-16 12:51] LABS: BACTERIA,URINE TRACE /HPF; WBC,URINE 25-50 /HPF
== END ==
LOC: LAB 11:57
PROVIDERS: ATTEND Internal Medicine
DX: R30.0 Dysuria (principal)
CPT/HCPCS: 81000; 87077; 87088; 87186

== ENCOUNTER → 2018-09-25 | Outpatient (CLI) | payer MEDICARE | LOC: LAB 10:37 | PROVIDERS: ATTEND Internal Medicine Endocrinology, Diabetes & Metabolism | DX: M81.0 Age-related osteoporosis without current pathological fracture (principal); Z85.850 Personal history of malignant neoplasm of thyroid | CPT/HCPCS: 36415; 82306; 84432; 84443; 86800 ==

== ENCOUNTER → 2018-09-28 | Outpatient (CLI) | payer MEDICARE ==
--- NOTE | 2018-09-28 14:02 | Diagnostic Imaging Report ---
PROCEDURE: CT abdomen and pelvis without contrast. TECHNIQUE: Multiple contiguous axial images were obtained through the abdomen and pelvis without the use of intravenous contrast. INDICATION: Urinary tract infections. COMPARISON: No prior studies are available for comparison. FINDINGS: The lung bases are clear. Liver contains several low densities which likely represent cysts. The largest is in the right lobe measuring 2 cm. The gallbladder is surgically absent. No biliary ductal dilatation is seen. Pancreas and spleen are unremarkable. No adrenal mass is identified. The left kidney contains cortical fatty density lesion measuring 9 mm suggestive of angiomyolipoma. No renal calculi are seen. No hydronephrosis is identified. The aorta is non-aneurysmal. The small and large bowel loops are normal caliber. There are multiple surgical clips in the anterior abdomen. No ascites is seen. The bladder is unremarkable. IMPRESSION: Probable hepatic cysts as well as a left renal angiomyolipoma. No acute feature in the abdomen or pelvis is identified. Dictated by: Dictated on workstation # [id number]
== END ==
LOC: RAD 13:37
PROVIDERS: ATTEND Urology
DX: N39.0 Urinary tract infection, site not specified (principal)
CPT/HCPCS: 74176

== ENCOUNTER 2018-10-17 06:09 | Outpatient (CLI) | payer MEDICARE ==
[~2018-10-17] VITALS: Ht 162.6 cm; Wt 62.1 kg
[2018-10-17] MEDS ORDERED: TRAZ-190 PO (13:33)
[2018-10-17] MEDS ORDERED: LEVO75TA6 PO (13:34)
== END 2018-10-17 14:10 | disposition home or self-care (01) ==
LOC: PREOP 06:09
PROVIDERS: ATTEND Surgery
DX: Z01.818 Encounter for other preprocedural examination (principal)

== ENCOUNTER 2018-10-20 08:29 | Day surgery (SDC) | payer MEDICARE ==
[~2018-10-20] VITALS: Ht 162.6 cm; Wt 62.1 kg
[~2018-10-20 08:29] MED LIST changes: +LEVO75TA6 PO; +TRAZ-190 PO
--- OUTSIDE RECORDS SUMMARY | 2018-10-20 08:35 | XMS REPORT | Continuity of Care Document ---
Author Author [facility] Organization [facility] Address Unknown Phone Unavailable Allergies Active Description Code Type Severity Reaction Onset Reported/Identified Relationship to Patient Clinical Status Yes ERTHROMYCIN' ERTHROMYCIN' Unknown N/A 08/07/2012 Yes SULFA SULFA Unknown N/A 08/07/2012 Yes ciprofloxacin [id number] Drug Allergy Moderate RASH 05/11/2017 Yes erythromycin base [id number] Drug Allergy Moderate RASH 05/11/2017 Yes nitrofurantoin [id number] Drug Allergy Moderate GI UPSET 05/11/2017 Yes SULFA SULFA Moderate GI UPSET 05/11/2017 Medications There is no data. Problems Date Dx Coded Attending Type Code [...] DO Ot M54.6 PAIN IN THORACIC SPINE 08/07/2012 Ot 455.0 INT HEMORRHOID W/O COMPL 08/07/2012 Ot 535.50 UNSP GASTRITIS GASTRODUODENITIS W/O ME 08/07/2012 Ot 558.9 NONINF GASTROENTERIT NEC 08/07/2012 Ot V58.69 OTH MED,LT, CURRENT USE 2015 EVELIN MURPHY MD Ot 789.02 2015 TIFF MURPHY FACULTY MEMBER Ot 793.82 2015 TIFF MURPHY FACULTY MEMBER Ot V76.12 2015 EVELIN MURPHY MD Ot 793.80 2015 JEFFREY VALENTIN, EVELIN Byrd Ot 793.80 2015 JEFFREY VALENTIN, EVELIN Byrd Ot 793.89 12/25/2015 EVELIN MURPHY MD Ot M85.80 01/30/2016 FRANCISCO DO, DAYNA F Ot M67.431 02/12/2016 FRANCISCO DO, DAYNA F Ot M67.431 07/14/2016 JEFFREY VALENTIN, EVELIN Byrd Ot 789.02 ABDOMINAL PAIN, LEFT UPPER QUADRANT 07/14/2016 TIFF MURPHY FACULTY MEMBER Ot 793.82 INCONCLUSIVE MAMMOGRAM 07/14/2016 TIFF MURPHY FACULTY MEMBER Ot V76.12 OTH SCREEN MAMMO-MALIGN NEOPLASM OF SHAYAN 07/14/2016 EVELIN MURPHY MD Ot 793.80 UNSPEC ABNORMAL MAMMOGRAM 07/14/2016 EVELIN MURPHY MD Ot 793.80 UNSPEC ABNORMAL MAMMOGRAM 07/14/2016 EVELIN MURPHY MD Ot 793.89 OTH (ABN) FINDINGS ON RADIOLOGICAL EXAMI 07/14/2016 EVELIN MURPHY MD, Ot M85.80 OTH DISRD OF BONE DENSITY AND STRUCTURE, 07/14/2016 FRANCISCO DO, DAYNA F Ot M67.431 GANGLION, RIGHT WRIST [...] PAIN IN THORACIC SPINE 11/12/2016 EVELIN MURPHY MD, Ot Z91.81 HISTORY OF FALLING 11/25/2016 JEFFREY VALENTIN, EVELIN Byrd Ot K76.9 LIVER DISEASE, UNSPECIFIED 11/25/2016 EVELIN [...] Ot W19.XXXA UNSPECIFIED FALL, INITIAL ENCOUNTER 01/17/2017 EVELIN MURPHY MD Ot 789.02 ABDOMINAL PAIN, LEFT UPPER QUADRANT 01/17/2017 TIFF MURPHY FACULTY MEMBER Ot 793.82 INCONCLUSIVE MAMMOGRAM 01/17/2017 TIFF MURPHY FACULTY MEMBER Ot V76.12 OTH SCREEN MAMMO-MALIGN NEOPLASM OF SHAYAN 01/17/2017 EVELIN MURPHY MD Ot 793.80 UNSPEC ABNORMAL MAMMOGRAM 01/17/2017 EVELIN MURPHY MD Ot 793.80 UNSPEC ABNORMAL MAMMOGRAM 01/17/2017 EVELIN MURHPY MD Ot 793.89 OTH (ABN) FINDINGS ON RADIOLOGICAL EXAMI 01/17/2017 EVEILN MURPHY MD Ot M85.80 OTH DISRD OF BONE DENSITY AND STRUCTURE, 01/17/2017 DAYNA SINGH DO Ot M67.431 GANGLION, RIGHT WRIST 01/17/2017 JEFFREY VALENTIN, EVELIN Byrd Ot K76.9 LIVER DISEASE, UNSPECIFIED 01/17/2017 EVELIN MURPHY MD Ot M54.9 DORSALGIA, UNSPECIFIED 01/17/2017 JEFFREY VALENTIN, EVELIN Byrd Ot S22.060A WEDGE COMPRESSION FRACTURE OF T7-T8 VERT 01/17/2017 EVELIN MURPHY MD Ot W19.XXXA UNSPECIFIED FALL, INITIAL ENCOUNTER 02/08/2017 EVELIN MURPHY MD Ot E55.9 VITAMIN D DEFICIENCY, UNSPECIFIED 02/10/2017 JA FRANCO DO Ot M54.6 PAIN IN THORACIC SPINE 02/18/2017 JA FRANCO DO Ot M54.6 PAIN IN THORACIC SPINE 03/09/2017 HUNTER VALENTIN, KRZYSZTOF Romo Ot E05.00 THYROTOXICOSIS W DIFFUSE GOITER W/O THYR 03/17/2017 ANUJ BERMUDEZ FACULTY MEMBER Ot R30.0 DYSURIA 03/17/2017 ANUJ BERMUDEZ FACULTY MEMBER Ot R82.99 OTHER ABNORMAL FINDINGS IN URINE 03/18/2017 JA FRANCO DO Ot M54.6 PAIN IN THORACIC SPINE 03/23/2017 ANUJ BERMUDEZ FACULTY MEMBER Ot R30.0 DYSURIA 03/23/2017 ANUJ BERMUDEZ FACULTY MEMBER Ot R82.99 OTHER ABNORMAL FINDINGS IN URINE 03/25/2017 JA FRANCO DO Ot M54.6 PAIN IN THORACIC SPINE 04/05/2017 KRZYSZTOF HARRISON MD Ot E05.00 THYROTOXICOSIS W DIFFUSE GOITER W/O THYR 04/21/2017 KRZYSZTOF HARRISON MD Ot E05.00 THYROTOXICOSIS W DIFFUSE GOITER W/O THYR 04/21/2017 KRZYSZTOF HARRISON MD Ot R94.6 ABNORMAL RESULTS OF THYROID FUNCTION LUCAS 05/06/2017 EVELIN MURPHY MD Ot E55.9 VITAMIN D DEFICIENCY, UNSPECIFIED 05/06/2017 EVELIN MURPHY MD Ot N39.0 URINARY TRACT INFECTION, SITE NOT SPECIF 05/06/2017 HUNTER VALENTIN, KRZYSZTOF Romo Ot E04.1 NONTOXIC SINGLE THYROID NODULE 05/11/2017 CYNTHIA HARRISON MDVIER M Ot R94.6 ABNORMAL RESULTS OF THYROID FUNCTION LUCAS 05/11/2017 HUNTER VALENTIN, KRZYSZTOF Romo Ot Z01.812 ENCOUNTER FOR PREPROCEDURAL LABORATORY E 05/11/2017 KRZYSZTOF HARRISON MD Ot Z11.2 ENCOUNTER FOR SCREENING FOR OTHER BACTER 05/19/2017 KRZYSZTOF HARRISON MD Ot 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 05/19/2017 KRZYSZTOF HARRISON MD Ot F32.9 MAJOR DEPRESSIVE DISORDER, SINGLE EPISOD 05/19/2017 KRZYSZTOF HARRISON MD Ot F41.9 ANXIETY DISORDER, UNSPECIFIED 05/19/2017 HUNTER VALENTIN, KRZYSZTOF Romo Ot K21.9 GASTRO-ESOPHAGEAL REFLUX DISEASE WITHOUT 05/19/2017 KRZYSZTOF HARRISON MD Ot Z79.899 OTHER SUPPORT SERVICES REP (CURRENT) DRUG THERAPY 05/19/2017 KRZYSZTOF HARRISON MD Ot 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 05/19/2017 KRZYSZTOF HARRISON MD Ot F32.9 MAJOR DEPRESSIVE DISORDER, SINGLE EPISOD 05/19/2017 KRZYSZTOF HARRISON MD Ot F41.9 ANXIETY DISORDER, UNSPECIFIED 05/19/2017 KRZYSZTOF HARRISON MD Ot K21.9 GASTRO-ESOPHAGEAL REFLUX DISEASE WITHOUT 05/19/2017 KRZYSZTOF HARRISON MD Ot Z79.899 OTHER SUPPORT SERVICES REP (CURRENT) DRUG THERAPY 05/20/2017 KRZYSZTOF HARRISON MD Ot 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 05/20/2017 KRZYSZTOF HARRISON MD Ot F32.9 MAJOR DEPRESSIVE DISORDER, SINGLE EPISOD 05/20/2017 KRZYSZTOF HARRISON MD Ot F41.9 ANXIETY DISORDER, UNSPECIFIED 05/20/2017 KRZYSZTOF HARRISON MD Ot K21.9 GASTRO-ESOPHAGEAL REFLUX DISEASE WITHOUT 05/20/2017 KRZYSZTOF HARRISON MD Ot Z79.899 OTHER SUPPORT SERVICES REP (CURRENT) DRUG THERAPY 05/20/2017 KRZYSZTOF HARRISON MD Ot E04.1 NONTOXIC SINGLE THYROID NODULE 05/25/2017 KRZYSZTOF HARRISON MD Ot 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 05/25/2017 KRZYSZTOF HARRISON MD Ot F32.9 MAJOR DEPRESSIVE DISORDER, SINGLE EPISOD 05/25/2017 HUNTER VALENTIN, KRZYSZTOF Romo Ot F41.9 ANXIETY DISORDER, UNSPECIFIED 05/25/2017 HUNTER VALENTIN, KRZYSZTOF Romo Ot K21.9 GASTRO-ESOPHAGEAL REFLUX DISEASE WITHOUT 05/25/2017 HUNTER VALENTIN, KRZYSZTOF Romo Ot Z79.899 OTHER SUPPORT SERVICES REP (CURRENT) DRUG THERAPY 06/09/2017 HUNTER VALENTIN, KRZYSZTOF Romo Ot E04.1 NONTOXIC SINGLE THYROID NODULE 06/27/2017 ANUJ BERMUDEZ FACULTY MEMBER Ot R30.0 DYSURIA 06/27/2017 ANUJ BERMUDEZ FACULTY MEMBER Ot R82.99 OTHER ABNORMAL FINDINGS IN URINE 07/04/2017 JEFFREY VALENTIN, EVELIN Byrd Ot Z12.31 ENCNTR SCREEN MAMMOGRAM FOR MALIGNANT NE 07/14/2017 EVELIN MURPHY MD Ot M54.6 PAIN IN THORACIC SPINE 07/16/2017 HUNTER VALENTIN, KRZYSZTOF Romo Ot C73 MALIGNANT NEOPLASM OF THYROID GLAND 08/03/2017 VESNA QUEZADA DO Ot E05.00 THYROTOXICOSIS W DIFFUSE GOITER W/O THYR 08/03/2017 ALEX QUEZADA DOISON L Ot M81.0 AGE-RELATED OSTEOPOROSIS W/O CURRENT PAT 08/03/2017 DAMIEN DIOR VESNA L Ot Z85.850 PERSONAL HISTORY OF MALIGNANT NEOPLASM O 08/12/2017 JEFFREY VALENTIN, EVELIN Byrd Ot M54.6 PAIN IN THORACIC SPINE 08/12/2017 EVELIN MURPHY MD Ot M54.6 PAIN IN THORACIC SPINE 08/23/2017 ALEX QUEZADA DOISON L Ot E05.00 THYROTOXICOSIS W DIFFUSE GOITER W/O THYR 08/23/2017 ALEX QUEZADA DOISON L Ot M81.0 AGE-RELATED OSTEOPOROSIS W/O CURRENT PAT 08/23/2017 DAMIEN DIOR, VESNA L Ot Z85.850 PERSONAL HISTORY OF MALIGNANT NEOPLASM O 09/09/2017 EVELIN MURPHY MD Ot Z12.31 ENCNTR SCREEN MAMMOGRAM FOR MALIGNANT NE 09/14/2017 HUNTER VALENTIN, KRZYSZTOF Romo Ot C73 MALIGNANT NEOPLASM OF THYROID GLAND 09/14/2017 DAMIEN DIOR VESNA L Ot E05.00 THYROTOXICOSIS W DIFFUSE GOITER W/O THYR 09/14/2017 ALEX QUEZADA DOISON L Ot M81.0 AGE-RELATED OSTEOPOROSIS W/O CURRENT PAT 09/14/2017 QUEZADA DO, VESNA L Ot Z85.850 PERSONAL HISTORY OF MALIGNANT NEOPLASM O 09/14/2017 JEFFREY VALENTIN, EVELIN Byrd Ot Z12.31 ENCNTR SCREEN MAMMOGRAM FOR MALIGNANT NE 09/14/2017 QUEZADA DO, VESNA L Ot Z85.850 PERSONAL HISTORY OF MALIGNANT NEOPLASM O 10/05/2017 QUEZADA , VESNA L Ot E05.00 THYROTOXICOSIS W DIFFUSE GOITER W/O THYR 10/05/2017 QUEZADA , VESNA L Ot E89.0 POSTPROCEDURAL HYPOTHYROIDISM 10/05/2017 QUEZADA , VESNA L Ot Z85.850 PERSONAL HISTORY OF MALIGNANT NEOPLASM O 10/26/2017 JEFFREY VALENTIN, EVELIN Byrd Ot M85.89 OTH DISRD OF BONE DENSITY AND STRUCTURE, 10/27/2017 EVELIN MURPHY MD Ot M85.89 OTH DISRD OF BONE DENSITY AND STRUCTURE, 10/27/2017 EVELIN MURPHY MD Ot M85.89 OTH DISRD OF BONE DENSITY AND STRUCTURE, 11/17/2017 EVELIN MURPHY MD Ot M85.852 OTH DISRD OF BONE DENSITY AND STRUCTURE, 11/17/2017 EVELIN MURPHY MD Ot M85.88 OTH DISRD OF BONE DENSITY AND STRUCTURE, 01/17/2018 QUEZADAALEX Ho DOISON Calin Ot E89.0 POSTPROCEDURAL HYPOTHYROIDISM 01/17/2018 QUEZADA , VESNA L Ot M81.0 AGE-RELATED OSTEOPOROSIS W/O CURRENT PAT 01/19/2018 Ot V72.84 EXAM PRE- OPERATIVE NOS 01/19/2018 Ot 722.10 LUMBAR DISC DISPLACEMENT 01/20/2018 Ot V72.84 EXAM PRE- OPERATIVE NOS 01/20/2018 Ot 722.10 LUMBAR DISC DISPLACEMENT 01/20/2018 Ot V72.84 EXAM PRE- OPERATIVE NOS 01/20/2018 Ot 722.10 LUMBAR DISC DISPLACEMENT 02/13/2018 QUEZADA DO, VESNA L Ot E89.0 POSTPROCEDURAL HYPOTHYROIDISM 02/13/2018 QUEZADA , VESNA L Ot M81.0 AGE-RELATED OSTEOPOROSIS W/O CURRENT PAT 03/15/2018 ALEX QUEZADA DOISON L Ot E05.00 THYROTOXICOSIS W DIFFUSE GOITER W/O THYR 03/15/2018 VESNA QUEZADA DO Ot M81.0 AGE-RELATED OSTEOPOROSIS W/O CURRENT PAT 04/05/2018 VESNA QUEZADA DO Ot E05.00 THYROTOXICOSIS W DIFFUSE GOITER W/O THYR 04/05/2018 VESNA QUEZADA DO Ot M81.0 AGE-RELATED OSTEOPOROSIS W/O CURRENT PAT 05/03/2018 JEFFREY VALENTIN, EVELIN Byrd Ot R53.83 OTHER FATIGUE 05/09/2018 VESNA QUEZADA DO Ot E89.0 POSTPROCEDURAL HYPOTHYROIDISM 06/05/2018 EVELIN MURPHY MD Ot 789.02 ABDOMINAL PAIN, LEFT UPPER QUADRANT 06/05/2018 TIFF MURPHY Ot 793.82 INCONCLUSIVE MAMMOGRAM 06/05/2018 TIFF MURPHY Ot V76.12 OTH SCREEN MAMMO-MALIGN NEOPLASM OF SHAYAN 06/05/2018 EVELIN MURPHY MD Ot 793.80 UNSPEC ABNORMAL MAMMOGRAM 06/05/2018 EVELIN MURPHY MD Ot 793.80 UNSPEC ABNORMAL MAMMOGRAM 06/05/2018 EVELIN MURPHY MD Ot 793.89 OTH (ABN) FINDINGS ON RADIOLOGICAL EXAMI 06/05/2018 EVELIN MURPHY MD Ot M85.80 OTH DISRD OF BONE DENSITY AND STRUCTURE, 06/05/2018 FRANCISCO DIOR DAYNA F Ot M67.431 GANGLION, RIGHT WRIST 06/05/2018 EVELIN MURPHY MD Ot K76.9 LIVER DISEASE, UNSPECIFIED 06/05/2018 EVELIN MURPHY MD Ot M54.9 DORSALGIA, UNSPECIFIED 06/05/2018 EVELIN MURPHY MD Ot S22.060A WEDGE COMPRESSION FRACTURE OF T7-T8 VERT 06/05/2018 EVELIN MURPHY MD Ot W19.XXXA UNSPECIFIED FALL, INITIAL ENCOUNTER 06/05/2018 EVELIN MURPHY MD Ot E55.9 VITAMIN D DEFICIENCY, UNSPECIFIED 06/05/2018 HUNTER VALENTIN, KRZYSZTOF Romo Ot E05.00 THYROTOXICOSIS W DIFFUSE GOITER W/O THYR 06/05/2018 ANUJ BERMUDEZ FACULTY MEMBER Ot R30.0 DYSURIA 06/05/2018 ANUJ BERMUDEZ FACULTY MEMBER Ot R82.99 OTHER ABNORMAL FINDINGS IN URINE 06/05/2018 HUNTER VALENTIN, KRZYSZTOF Romo Ot E05.00 THYROTOXICOSIS W DIFFUSE GOITER W/O THYR 06/05/2018 HUNTER VALENTIN, KRZYSZTOF Romo Ot R94.6 ABNORMAL RESULTS OF THYROID FUNCTION LUCAS 06/05/2018 JEFFREY VALENTIN, EVELIN Byrd Ot N39.0 URINARY TRACT INFECTION, SITE NOT SPECIF 06/05/2018 HUNTER VALENTIN, KRZYSZTOF Romo Ot E04.1 NONTOXIC SINGLE THYROID NODULE 06/05/2018 HUNTER VALENTIN, KRZYSZTOF Romo Ot C73 MALIGNANT NEOPLASM OF THYROID GLAND 06/05/2018 QUEZADA DO, VESNA L Ot E05.00 THYROTOXICOSIS W DIFFUSE GOITER W/O THYR 06/05/2018 QUEZADA DO, VESNA L Ot M81.0 AGE-RELATED OSTEOPOROSIS W/O CURRENT PAT 06/05/2018 DAMIEN DIOR, VESNA L Ot Z85.850 PERSONAL HISTORY OF MALIGNANT NEOPLASM O 06/05/2018 JEFFREY VALENTIN, EVELIN Byrd Ot Z12.31 ENCNTR SCREEN MAMMOGRAM FOR MALIGNANT NE 06/05/2018 QUEZADA DO, VESNA L Ot E05.00 THYROTOXICOSIS W DIFFUSE GOITER W/O THYR 06/05/2018 QUEZADA DO, VESNA L Ot E89.0 POSTPROCEDURAL HYPOTHYROIDISM 06/05/2018 DAMIEN DIOR, VESNA L Ot Z85.850 PERSONAL HISTORY OF MALIGNANT NEOPLASM O 06/05/2018 EVELIN MURPHY MD Ot M85.852 OTH DISRD OF BONE DENSITY AND STRUCTURE, 06/05/2018 EVELIN MURPHY MD Ot M85.88 OTH DISRD OF BONE DENSITY AND STRUCTURE, 06/05/2018 DAMIEN DO, VESNA L Ot E89.0 POSTPROCEDURAL HYPOTHYROIDISM 06/05/2018 DAMIEN DIOR, VESNA L Ot M81.0 AGE-RELATED OSTEOPOROSIS W/O CURRENT PAT 06/05/2018 DAMIEN DO, VESNA L Ot E05.00 THYROTOXICOSIS W DIFFUSE GOITER W/O THYR 06/05/2018 QUEZADA DO, VESNA L Ot M81.0 AGE-RELATED OSTEOPOROSIS W/O CURRENT PAT 06/05/2018 EVELIN MURPHY MD Ot R53.83 OTHER FATIGUE 06/05/2018 DAMIEN DO, VESNA L Ot E89.0 POSTPROCEDURAL HYPOTHYROIDISM 06/09/2018 EVELIN MURPHY MD, Ot N39.0 URINARY TRACT INFECTION, SITE NOT SPECIF 06/09/2018 VESNA QUEZADA DO, Ot E89.0 POSTPROCEDURAL HYPOTHYROIDISM 09/19/2018 EVELIN MURPHY MD, Ot R30.0 DYSURIA 09/26/2018 VESNA QUEZADA DO, Ot M81.0 AGE-RELATED OSTEOPOROSIS W/O CURRENT PAT 09/26/2018 VESNA QUEZADA DO, Ot Z85.850 PERSONAL HISTORY OF MALIGNANT NEOPLASM O 10/11/2018 EVELIN MURPHY MD, Ot R30.0 DYSURIA Procedures There is no data. Results Test Result Range 25-hydroxyvitamin D measurement - 01/17/17 13:05 25-hydroxy vitamin D measurement 34 % 30-100 Bacterial urine culture - 03/12/17 14:45 Bacterial urine culture [id number] NRG COLONY COUNT 10,000/ML - 100,000/ML NRG FTX;REPORTABLE MIXED GRAM POSITIVE YONG <10,000/ML NRG Bacterial susceptibility panel - 03/12/17 14:45 Gentamicin susceptibility test by minimum inhibitory concentration < = NRG Trimethoprim/sulfamethoxazole susceptibility test by minimum inhibitoryconcentration <= NRG Tobramycin susceptibility test by minimum inhibitory concentration < = NRG Cefazolin susceptibility test by minimum inhibitory concentration < = NRG Ceftriaxone susceptibility test by minimum inhibitory concentration <= NRG Piperacillin/tazobactam susceptibility test by minimum inhibitory concentration <= NRG Ciprofloxacin susceptibility test by minimum inhibitory concentration <= NRG Meropenem susceptibility test by minimum inhibitory concentration < = NRG Nitrofurantoin susceptibility test by minimum inhibitory concentration 32 NRG Aztreonam susceptibility test by minimum inhibitory concentration < = NRG Bacterial urine culture - 03/31/17 09:26 URINE CULTURE RESULTS <10,000/ML NRG Complete blood count (CBC) with automated white blood cell (WBC) differential - 05/11/17 12:45 Blood leukocytes automated count (number/volume) 8.1 10*3/uL 4.3-11.0 Blood erythrocytes automated count (number/volume) 4.56 10*6/uL 4.35-5.85 Venous blood hemoglobin measurement (mass/volume) 13.0 [...] Automated blood platelet mean volume measurement 9.4 [foz_us] 7.4-10.4 Automated blood neutrophils/100 leukocytes 52 % [...] Serum or plasma sodium measurement (moles/volume) 134 mmol/L 135-145 Serum or plasma potassium measurement (moles/volume) 4.2 mmol/L 3.6-5.0 Serum or plasma chloride measurement (moles/volume) 101 mmol/L 98-107 Carbon dioxide 25 mmol/L 21-32 Serum or plasma anion gap determination (moles/volume) 8 mmol/L 5-14 Serum or plasma urea nitrogen measurement (mass/volume) 10 mg/dL 7-18 Serum or plasma creatinine measurement (mass/volume) 0.84 mg/dL 0.60-1.30 Serum or plasma urea nitrogen/creatinine mass ratio 12 0 -20 Serum or plasma creatinine measurement with calculation of estimated glomerular filtration rate > NRG Serum or plasma glucose measurement (mass/volume) 92 mg/dL 70-105 Serum or plasma calcium measurement (mass/volume) 9.3 mg/dL 8.5-10.1 Methicillin resistant Staphylococcus aureus (MRSA) screening culture - 12:45 Methicillin resistant Staphylococcus aureus (MRSA) screening culture NEG NRG Whole blood basic metabolic panel - 05/19/17 06:23 Serum or plasma sodium measurement (moles/volume) 130 mmol/L 135-145 Serum or plasma potassium measurement (moles/volume) 4.2 mmol/L 3.6-5.0 Serum or plasma chloride measurement (moles/volume) 97 mmol/L 98-107 Carbon dioxide 20 mmol/L 21-32 Serum or plasma anion gap determination (moles/volume) 13 mmol/L 5-14 Serum or plasma urea nitrogen measurement (mass/volume) 8 mg/dL 7-18 Serum or plasma creatinine measurement (mass/volume) 0.73 mg/dL 0.60-1.30 Serum or plasma urea nitrogen/creatinine mass ratio 11 NRG Serum or plasma creatinine measurement with calculation of estimated glomerular filtration rate > NRG Serum or plasma glucose measurement (mass/volume) 132 mg/dL 70-105 Serum or plasma calcium measurement (mass/volume) 8.5 mg/dL 8.5-10.1 THYROID STIMULATING HORMONE - 06/24/17 11:55 THYROID STIMULATING HORMONE 30.95 u[iU]/mL 0.35-4.94 Total triiodothyronine (T3) measurement - 06/24/17 11:55 Total triiodothyronine (T3) measurement 0.8 % 0.6-1.8 Thyroxine (T4) measurement - 06/24/17 11:55 T4 (thyroxine) 8.1 % 5.5-12.0 Complete blood count (CBC) with automated white blood cell (WBC) differential - 08/02/17 08:24 Blood leukocytes automated count (number/volume) 8.3 10*3/uL 4.3-11.0 Blood erythrocytes automated count (number/volume) 3.90 10*6/uL 4.35-5.85 Venous blood hemoglobin measurement (mass/volume) 12.0 g/dL 11.5-16.0 Blood hematocrit (volume fraction) 35 % 35-52 Automated erythrocyte mean corpuscular volume 90 [foz_us] 80-99 Automated erythrocyte mean corpuscular hemoglobin (mass per erythrocyte) 31 pg 25-34 Automated erythrocyte mean corpuscular hemoglobin concentration measurement ( mass/volume) 34 g/dL 32-36 Automated erythrocyte distribution width ratio 14.4 % 10.0-14.5 Automated blood platelet count (count/volume) 301 10*3/uL 130-400 Automated blood platelet mean volume measurement 9.0 [foz_us] 7.4-10.4 Automated blood neutrophils/100 leukocytes 54 % 42-75 Automated blood lymphocytes/100 leukocytes 35 % 12-44 Blood monocytes/100 leukocytes 9 % 0-12 Automated blood eosinophils/100 leukocytes 2 % 0-10 Automated blood basophils/100 leukocytes 0 % 0-10 Blood neutrophils automated count (number/volume) 4.5 10*3 1.8-7.8 Blood lymphocytes automated count (number/volume) 2.9 10*3 1.0-4.0 Blood monocytes automated count (number/volume) 0.7 10*3 0.0-1.0 Automated eosinophil count 0.2 10*3/uL 0.0-0.3 Automated blood basophil count (count/volume) 0.0 10*3/uL 0.0-0.1 Comprehensive metabolic panel - 08/02/17 08:24 Serum or plasma sodium measurement (moles/volume) 132 mmol/L 135-145 Serum or plasma potassium measurement (moles/volume) 4.2 mmol/L 3.6-5.0 Serum or plasma chloride measurement (moles/volume) 98 mmol/L 98-107 Carbon dioxide 25 mmol/L 21-32 Serum or plasma anion gap determination (moles/volume) 9 mmol/L 5-14 Serum or plasma urea nitrogen measurement (mass/volume) 8 mg/dL 7-18 Serum or plasma creatinine measurement (mass/volume) 0.81 mg/dL 0.60-1.30 Serum or plasma urea nitrogen/creatinine mass ratio 10 NRG Serum or plasma creatinine measurement with calculation of estimated glomerular filtration rate > NRG Serum or plasma glucose measurement (mass/volume) 100 mg/dL 70-105 Serum or plasma calcium measurement (mass/volume) 8.9 mg/dL 8.5-10.1 Serum or plasma total bilirubin measurement (mass/volume) 0.5 mg/dL 0.1-1.0 Serum or plasma alkaline phosphatase measurement (enzymatic activity/volume) 64 U/L 40-136 Serum or plasma aspartate aminotransferase measurement (enzymatic activity/ volume) 19 U/L 5-34 Serum or plasma alanine aminotransferase measurement (enzymatic activity/volume ) 16 U/L 0-55 Serum or plasma protein measurement (mass/volume) 6.9 g/dL 6.4-8.2 Serum or plasma albumin measurement (mass/volume) 4.2 g/dL 3.2-4.5 Serum or plasma phosphate measurement (mass/volume) - 08/02/17 08:24 Serum or plasma phosphate measurement (mass/volume) 3.6 mg/dL 2.3-4.7 Magnesium - 08/02/17 08:24 Magnesium 2.1 mg/dL 1.8-2.4 THYROID STIMULATING HORMONE - 08/02/17 08:24 THYROID STIMULATING HORMONE 13.99 u[iU]/mL 0.35-4.94 Thyroglobulin measurement with antithyroglobulin antibody assay - 08/02/17 08: 24 Thyroglobulin [mass/volume] in serum or plasma < % 1.60- 59.90 Serum protein electrophoresis - 08/02/17 08:24 Serum or plasma protein measurement (mass/volume) 6.8 % 6.5-8.2 Pathology consultation and report FOOTNOTE NRG Serum or plasma protein fractions interpretation by electrophoresis [facility] [id number] [facility] Serum or plasma intact pararthyroid hormone measurement (mass/volume) - 08:24 Serum or plasma intact parathyroid hormone measurement (mass/volume) 43.0 pg/mL 10.0-65.0 Bio-intact parathyroid hormone (PTH) measurement with calcium 9.0 % 8.5-10.5 Thyroid stimulating immunoglobulin (TSI) measurement - 08/02/17 08:24 Thyroglobulin [mass/volume] in serum or plasma 0.07 % 0.00-0.50 THYROID STIMULATING HORMONE - 09/14/17 13:33 THYROID STIMULATING HORMONE 0.87 u[iU]/mL 0.35-4.94 THYROID STIMULATING HORMONE - 01/13/18 12:21 THYROID STIMULATING HORMONE 0.06 u[iU]/mL 0.35-4.94 25-hydroxyvitamin D measurement - 01/13/18 12:21 25-hydroxy vitamin D measurement 25 % 30-100 THYROID STIMULATING HORMONE - 03/14/18 14:55 THYROID STIMULATING HORMONE 0.11 u[iU]/mL 0.35-4.94 VITAMIN D 25-HYDROXY - 03/14/18 14:55 VITAMIN D 25-HYDROXY (TOTAL) 32 % 30-100 Automated blood complete blood count (hemogram) panel - 04/13/18 10:34 Blood leukocytes automated count (number/volume) 6.6 10*3/uL 4.3-11.0 Blood erythrocytes automated count (number/volume) 4.39 10*6/uL 4.35-5.85 Venous blood hemoglobin measurement (mass/volume) 12.7 g/dL 11.5-16.0 Blood hematocrit (volume fraction) 38 % 35-52 Automated erythrocyte mean corpuscular volume 86 [foz_us] 80-99 Automated erythrocyte mean corpuscular hemoglobin (mass per erythrocyte) 29 pg 25-34 Automated erythrocyte mean corpuscular hemoglobin concentration measurement ( mass/volume) 34 g/dL 32-36 Automated erythrocyte distribution width ratio 14.9 % 10.0-14.5 Automated blood platelet count (count/volume) 349 10*3/uL 130-400 Automated blood platelet mean volume measurement 9.5 [foz_us] 7.4-10.4 Erythrocyte sedimentation rate by westergren method - 04/13/18 10:34 Erythrocyte sedimentation rate by westergren method 15 mm 0-30 Cyanocobalamin measurement - 04/13/18 10:34 Vitamin B12 507 pg/mL 190-1100 THYROID STIMULATING HORMONE - 04/19/18 11:56 THYROID STIMULATING HORMONE 0.11 u[iU]/mL 0.35-4.94 THYROID STIMULATING HORMONE - 06/07/18 17:05 THYROID STIMULATING HORMONE 1.01 u[iU]/mL 0.35-4.94 Serum or plasma thyroxine (T4) free measurement (mass/volume) - 06/07/18 17:05 Serum or plasma thyroxine (T4) free measurement (mass/volume) 1.19 ng/dL 0.70-1.48 Complete urinalysis with reflex to culture - 06/07/18 17:10 Urine color determination YELLOW NRG Urine clarity determination CLEAR NRG Urine pH measurement by test strip 7 5-9 Specific gravity of urine by test strip 1.010 1.016- 1.022 Urine protein assay by test strip, semi-quantitative NEGATIVE NEGATIVE Urine glucose detection by automated test strip NEGATIVE NEGATIVE Erythrocytes detection in urine sediment by light microscopy 1+ NEGATIVE Urine ketones detection by automated test strip NEGATIVE NEGATIVE Urine nitrite detection by test strip NEGATIVE NEGATIVE Urine total bilirubin detection by test strip NEGATIVE NEGATIVE Urine urobilinogen measurement by automated test strip (mass/volume) NORMAL NORMAL Urine leukocyte esterase detection by dipstick 3+ NEGATIVE Automated urine sediment erythrocyte count by microscopy (number/high power field) [HPF] NRG Automated urine sediment leukocyte count by microscopy (number/high power field ) [HPF] NRG Bacteria detection in urine sediment by light microscopy FEW NRG Squamous epithelial cells detection in urine sediment by light microscopy 2-5 NRG Crystals detection in urine sediment by light microscopy NONE NRG Casts detection in urine sediment by light microscopy NONE NRG Mucus detection in urine sediment by light microscopy NEGATIVE NRG Complete urinalysis with reflex to culture YES NRG Bacterial urine culture - 06/07/18 17:10 Bacterial urine culture SEE COMMEN NRG COLONY COUNT . NRG FTX;REPORTABLE 40,000 CFU/ML NR FREE TEXT ENTRY 2 RML SUSCEPTIBILITY REPORT PRINTED [facility] FREE TEXT ENTRY 3 0805, 06-09-2018 [facility] RML Sensitivity Panel - 06/07/18 17:10 Gentamicin susceptibility test by minimum inhibitory concentration < = NRG Trimethoprim/sulfamethoxazole susceptibility test by minimum inhibitoryconcentration S NRG Levofloxacin susceptibility test by minimum inhibitory concentration <= NRG Ampicillin susceptibility test by minimum inhibitory concentration R NRG Cefazolin susceptibility test by minimum inhibitory concentration S NRG Ceftriaxone susceptibility test by minimum inhibitory concentration <= NRG Ciprofloxacin susceptibility test by minimum inhibitory concentration <= NRG Meropenem susceptibility test by minimum inhibitory concentration < = NRG Nitrofurantoin susceptibility test by minimum inhibitory concentration 64 NRG Amoxicillin and clavulanate potassium susc HARI S NRG Complete urinalysis with reflex to culture - 09/16/18 12:10 Urine color determination YELLOW NRG Urine clarity determination CLEAR NRG Urine pH measurement by test strip 6.5 5-9 Specific gravity of urine by test strip 1.010 1.016- 1.022 Urine protein assay by test strip, semi-quantitative NEGATIVE NEGATIVE Urine glucose detection by automated test strip NEGATIVE NEGATIVE Erythrocytes detection in urine sediment by light microscopy 2+ NEGATIVE Urine ketones detection by automated test strip NEGATIVE NEGATIVE Urine nitrite detection by test strip NEGATIVE NEGATIVE Urine total bilirubin detection by test strip NEGATIVE NEGATIVE Urine urobilinogen measurement by automated test strip (mass/volume) NORMAL NORMAL Urine leukocyte esterase detection by dipstick 3+ NEGATIVE Automated urine sediment erythrocyte count by microscopy (number/high power field) NONE NRG Automated urine sediment leukocyte count by microscopy (number/high power field ) [HPF] NRG Bacteria detection in urine sediment by light microscopy TRACE NRG Crystals detection in urine sediment by light microscopy NONE NRG Casts detection in urine sediment by light microscopy NONE NRG Mucus detection in urine sediment by light microscopy NEGATIVE NRG Complete urinalysis with reflex to culture YES NRG Bacterial urine culture - 09/16/18 12:10 Bacterial urine culture [id number] NRG COLONY COUNT 70,000 cfu/ml NRG FTX;REPORTABLE ID REPORTED 09/17/18 8:05 NRG FREE TEXT ENTRY 2 SENSITIVITY REPORTED 09/18/18 13:05 NRG RML Sensitivity Panel - 09/16/18 12:10 Gentamicin susceptibility test by minimum inhibitory concentration < = NRG Levofloxacin susceptibility test by minimum inhibitory concentration <= NRG Tobramycin susceptibility test by minimum inhibitory concentration S NRG Piperacillin/tazobactam susceptibility test by minimum inhibitory concentration = NRG Ciprofloxacin susceptibility test by minimum inhibitory concentration <= NRG Meropenem susceptibility test by minimum inhibitory concentration < = NRG Aztreonam susceptibility test by minimum inhibitory concentration 8 NRG Cefepime susceptibility test by minimum inhibitory concentration 2 NRG Imipenem susceptibility test by minimum inhibitory concentration 2 NRG Ceftazidime susceptibility test by minimum inhibitory concentration <= NRG THYROID STIMULATING HORMONE - 09/25/18 10:45 THYROID STIMULATING HORMONE 1.41 u[iU]/mL 0.35-4.94 THYROGLOBULIN PANEL - 09/25/18 10:45 Thyroglobulin [mass/volume] in serum or plasma 0.05 % 0.00-0.50 VITAMIN D 25-HYDROXY - 09/25/18 10:45 VITAMIN D 25-HYDROXY (TOTAL) 33.6 % 30.0-100.0 Encounters ACCT No. Visit Date/Time Discharge Status Pt. Type Provider Facility Loc./Unit Complaint [id number] 09/28/2018 13:37:00 09/28/2018 23:59:59 CLS Outpatient SOO ALONZO MD [facility] RAD H/O UTI'S [id number] 09/25/2018 10:37:00 09/25/2018 23:59:59 CLS Outpatient VESNA QUEZADA DO [facility] LAB HISTORY OF THRYOID CANCER [id number] 09/16/2018 11:57:00 09/16/2018 23:59:59 CLS Outpatient EVELIN MURPHY MD [facility] DYSURIA [id number] 06/07/2018 16:53:00 06/07/2018 23:59:59 CLS Outpatient QUEZADA DO, VESNA L [facility] LAB E89.0 [id number] 06/07/2018 16:50:00 06/07/2018 23:59:59 CLS Outpatient EVELIN MURPHY MD [facility] LAB RECURRENT UTI [id number] 06/05/2018 10:57:00 06/05/2018 23:59:59 CLS Outpatient Demetrius PRITCHETT MD [facility] CARD MITRAL VALVE PROLAPSE, SOB [id number] 04/19/2018 11:35:00 04/19/2018 23:59:59 CLS Outpatient QUEZADA DO, VESNA L [facility] LAB E89.0 [id number] 04/13/2018 10:22:00 04/13/2018 23:59:59 CLS Outpatient EVELIN MURPHY MD [facility] FATIGUE [id number] 03/14/2018 14:42:00 03/14/2018 23:59:59 CLS Outpatient QUEZADA DO, VESNA L [facility] LAB E05.00 [id number] 01/13/2018 12:10:00 01/13/2018 23:59:59 CLS Outpatient QUEZADA DO, VESNA L [facility] M81.0 E89.0 [id number] 10/06/2017 12:06:00 10/06/2017 23:59:59 CLS Outpatient EVELIN MURPHY MD [facility] RAD E05.0,M85.89 [id number] 09/14/2017 13:23:00 09/14/2017 23:59:59 CLS Outpatient QUEZADA DO, VESNA L [facility] LAB Z85.850 [id number] 08/19/2017 10:53:00 08/19/2017 23:59:59 CLS Outpatient EVELIN MURPHY MD [facility] RAD SCREENING [id number] 08/12/2017 11:19:00 08/12/2017 12:01:00 DIS Outpatient EVELIN MURPHY MD [facility] REHAB BACK PAIN [id number] 08/02/2017 08:04:00 08/02/2017 23:59:59 CLS Outpatient VESNA QUEZADA DO [facility] LAB Z85.850 M81.0 Z85.850 M81.0 E05.00 [id number] 06/24/2017 11:44:00 06/24/2017 23:59:59 CLS Outpatient KRZYSZTOF HARRISON MD [facility] LAB PAPILLARY CANCER THYROID [id number] 06/22/2017 15:25:00 06/22/2017 23:59:59 CLS Preadmit EVELIN MURPHY MD [facility] RAD SCREENING [id number] 05/18/2017 16:00:00 05/19/2017 09:56:00 DIS Outpatient KRZSYZTOF HARRISON MD [facility] SDC HYPERACTIVE THYROIDISM [id number] 05/11/2017 12:11:00 05/11/2017 13:58:00 DIS Outpatient KRZYSZTOF HARRISON MD [facility] PREOP HYPERACTIVE HYPOTHYROIDISM [id number] 04/26/2017 12:40:00 04/26/2017 23:59:59 CLS Outpatient KRZYSZTOF HARRISON MD [facility] LEFT THYROID NODULE [id number] 03/31/2017 09:04:00 03/31/2017 23:59:59 CLS Outpatient EVELIN MURPHY MD [facility] F/U UTI [id number] 03/31/2017 08:59:00 03/31/2017 23:59:59 CLS Outpatient KRZYSZTOF HARRISON MD [facility] LAB GRAVES DISEASE [id number] 03/25/2017 11:15:00 03/25/2017 12:13:00 DIS Outpatient JA FRANCO DO [facility] REHAB THORACIC PAIN [id number] 03/12/2017 14:45:00 03/12/2017 23:59:59 CLS Outpatient ANUJ BERMUDEZ [facility] LABNPT [id number] 03/07/2017 12:11:00 03/07/2017 23:59:59 CLS Outpatient KRZYSZTOF HARRISON MD [facility] RAD THYROID GRAVES DISEASE [id number] 01/17/2017 12:50:00 01/17/2017 23:59:59 CLS Outpatient EVELIN MURPHY MD [facility] LAB VITAMIN D DEFICIENCY [id number] 11/17/2016 10:35:00 12/07/2016 09:13:00 DIS Outpatient EVELIN MURPHY MD [facility] REHAB UPPER BACK PAIN AND CERVICALGIA POST FALL [id number] 11/19/2016 09:16:00 11/19/2016 23:59:59 CLS Outpatient EVELIN MURPHY MD [facility] RAD MID BACK PAIN [id number] 08/09/2016 10:38:00 09/03/2016 08:54:00 DIS Outpatient EVELIN MURPHY MD [facility] REHAB THORACIC/LUMBAR PAIN;R CARPAL TUNNEL REHAB [id number] 01/09/2016 14:44:00 01/09/2016 23:59:59 CLS Outpatient DAYNA SINGH DO [facility] RAD R WRIST GANGLION CYST [id number] 2015 10:49:00 2015 23:59:59 CLS Outpatient EVELIN MURPHY MD [facility] RISK FACTORS OSTEOPOROSIS [id number] 01/30/2014 09:07:00 01/30/2014 23:59:59 CLS Outpatient EVELIN MURPHY MD [facility] RAD 6 MONTH F/U [id number] 08/29/2013 08:15:00 08/29/2013 23:59:59 CLS Outpatient EVELIN MURPHY MD [facility] ABN MAMMO [id number] 08/27/2013 07:56:00 08/27/2013 23:59:59 CLS Outpatient EVELIN MURPHY MD [facility] RAD ABNORMAL MAMMO [id number] 08/17/2013 14:04:00 08/17/2013 23:59:59 CLS Outpatient TIFF MURPHY [facility] SCREENING [id number] 05/10/2013 09:13:00 05/10/2013 23:59:59 CLS Outpatient JEFFREY VALENTIN, EVELIN Byrd [facility] LEFT UPPER QUAD ABD PAIN [id number] 10/20/2018 12:15:00 PEN Preadmit HUNTER VALENTIN, KRZYSZTOF Romo [facility] SKIN LESION [id number] 08/18/2012 13:22:00 Document Registration [id number] 08/07/2012 08:12:00 Document Registration [id number] 08/04/2012 08:14:00 Document Registration
[2018-10-20] MEDS ORDERED: LACTATED RINGERS 1,000 ML IV PRN (08:45)
[2018-10-20] MEDS ORDERED: CLINDAMYCIN 600 MG/50 ML IVPB 50 ML IV ONE (08:45)
[2018-10-20] MEDS ORDERED: CATHETER FLUSH 10 ML SYR IV PRN (09:00)
[2018-10-20] MEDS ORDERED: PROPOFOL INJECTION 50 ML IV ONE (09:01)
[2018-10-20] MEDS ORDERED: PROPOFOL INJECTION 0 ML IV ONE (09:01)
[2018-10-20] MEDS ORDERED: MIDAZOLAM 2 MG/2 ML (VERSED) VIAL ONE ×2 (09:01→10:06)
[2018-10-20 09:15] VITALS: BP 143/68
[2018-10-20] MEDS ORDERED: BUP/EPI 0.5% 1:200,000 (SENSORCAINE) 30 ML VIAL ONE (09:18)
--- NOTE | 2018-10-20 09:58 | Progress Note-Pre Operative ---
Pre-Operative Progress Note H&P Reviewed The H&P was reviewed, patient examined and no changes noted. Date Seen by Provider: Oct 02, 2018 Time Seen by Provider: 16:50 Date H&P Reviewed: Oct 20, 2018 Time H&P Reviewed: 09:57 Pre-Operative Diagnosis: sKIN LESIONS KRZYSZTOF HARRISON MD Oct 20, 2018 09:58
--- NOTE | 2018-10-20 10:56 | Operative Report ---
Operative Report Date of Procedure/Surgery Oct 20, 2018 Surgeon (s) KRZYSZTOF HARRISON MD Weight Reduction Specialist (s): n/a Post-Operative Diagnosis sAME Procedure Performed Excision *2 Description of Procedure Anesthesia Type: MAC Estimated blood loss (mL): Minimal Specimen(s) collected/removed Skin lesions Description of the Procedure Indication for the procedure: This lady presented with 2 lesions, 1 cm 2.5 cm each, involving the left chest wall and the right scapular region respectively , exhibiting increased pigmentation over the last few months. Therefore, full- thickness excision to rule out melanoma was felt to be reasonable. Informed consent was obtained after reviewing the operative details and complications of wound infection, hematoma etc. Should melanoma be discovered, potential for additional surgery was highlighted. Description of the procedures: Excision of lesion from the left chest wall: She was placed supine on the operative table and our anesthesiologist administered sedation, monitoring her vital signs. A gram of Ancef was administered intravenously as prophylaxis against wound infection. After adequate antiseptic preparation, local anesthesia was achieved using 0.5 percent Marcaine with epinephrine. An elliptical incision, 2 cm in length by 1 cm in width was made and the lesion excised down to the subcutaneous tissue. It was oriented with silk sutures and sent for histological examination. Hemostasis was achieved using cautery and the incision closed using 4-0 Vicryl, in an interrupted, subcuticular fashion. Steri-Strips and a sterile dressing were then applied. Excision of lesionright scapular region: Local anesthesia was achieved in a similar fashion. An elliptical incision 5 cm in length by 2 cm in width was made and the lesion excised down to the subcutaneous tissue. It was oriented with silk sutures and sent for histologic examination. Hemostasis was achieved using cautery and the incision closed using interrupted 4-0 and 5-0 nylon sutures. A nonadherent dressing was then applied. She tolerated the procedures well and was taken to the recovery room in a stable condition. Findings of the Procedure See op report Allergies and Home Medications Allergies Coded Allergies: ciprofloxacin (Verified Allergy, Intermediate, RASH, 10/17/18) erythromycin base (Verified Allergy, Intermediate, RASH, 10/17/18) nitrofurantoin (Verified Allergy, Intermediate, GI UPSET, 10/17/18) cefdinir (Verified Allergy, Mild, BODY PAIN, GI UPSET, 10/17/18) Uncoded Allergies: SULFA (Allergy, Intermediate, GI UPSET, 05/11/17) Home Medications Fluvoxamine Maleate 100 Mg Tablet, 100 MG PO DAILY, (Reported) Levothyroxine Sodium 75 Mcg Tablet, 75 MCG PO DAILY, (Reported) Lorazepam 1 Mg Tablet, 2 MG PO HS, (Reported) Trazodone HCl 100 Mg Tablet, 50 MG PO HS, (Reported) Patient Home Medication List Home Medication List Reviewed: Yes KRZYSZTOF HARRISON MD Oct 20, 2018 10:56
[2018-10-20] MEDS ORDERED: TRAM50TA2 PO (10:57)
--- NOTE | 2018-10-20 10:58 | Discharge Inst-Simple/Standard ---
Discharge Inst-Standard Discharge Medications New, Converted or Re-Newed RX: RX on Chart Patient Instructions/Follow Up Plan of Care/Instructions/FU: Band-Aids off in 48 hours. Follow-up with my nurse in 10 days for suture removal Activity as Tolerated: Yes Discharge Diet: No Restrictions KRZYSZTOF HARRISON MD Oct 20, 2018 10:58
[2018-10-20 11:25] VITALS: BP 140/70
[2018-10-20 11:55] VITALS: BP 142/72
[2018-10-20 12:25] VITALS: BP 138/70
[2018-10-20 12:30] VITALS: BP 138/70
--- NOTE | 2018-10-20 13:06 | Anesthesia-General Post-Op ---
MAC Patient Condition Mental Status/LOC: Same as Preop Cardiovascular: Satisfactory Nausea/Vomiting: Absent Respiratory: Satisfactory Pain: Controlled Complications: Absent Post Op Complications Complications None Follow Up Care/Instructions Patient Instructions None needed. Anesthesiology Discharge Order Discharge Order Patient is doing well, no complaints, stable vital signs, no apparent adverse anesthesia problems. No complications reported per nursing. RENETTA BURGER CRNA Oct 20, 2018 13:06
== END 2018-10-20 12:30 | disposition home or self-care (01) ==
LOC: SDC 08:29
PROVIDERS: ATTEND Surgery
DX: L82.1 Other seborrheic keratosis (principal); Z11.2 Encounter for screening for other bacterial diseases; I77.89 Other specified disorders of arteries and arterioles; E05.00 Thyrotoxicosis with diffuse goiter without thyrotoxic crisis or storm; K21.9 Gastro-esophageal reflux disease without esophagitis; Z79.899 Other long term (current) drug therapy
CPT/HCPCS: 87081

== ENCOUNTER → 2018-11-01 | Outpatient (CLI) | payer MEDICARE ==
[~2018-11-01] MED LIST changes: +TRAM50TA2 PO
[2018-11-01 10:24] LABS: CLARITY,URINE SLIGHTLY CLOUDY; COLOR,URINE AMBER; GLUCOSE, URINE (UA) NEGATIVE (NEGATIVE); KETONES,URINE NEGATIVE (NEGATIVE); LEUKOCYTE ESTERASE ,URINE 3+ (NEGATIVE); NITRITE,URINE POSITIVE (NEGATIVE); PH,URINE 6 (5-9); PROTEIN,URINE 2+ (NEGATIVE); UROBILINOGEN,URINE 4 MG/DL (NORMAL)
[2018-11-01 10:44] LABS: WBC,URINE TNTC /HPF
[2018-11-01 10:45] LABS: BACTERIA,URINE FEW /HPF; BILIRUBIN,URINE 2+ (NEGATIVE)
== END ==
LOC: LAB 10:04
PROVIDERS: ATTEND Urology
DX: R82.5 Elevated urine levels of drugs, medicaments and biological substances (principal)
CPT/HCPCS: 81000; 87077; 87088; 87186

== ENCOUNTER 2019-11-28 13:04 | Outpatient (RCR) | payer MEDICARE ==
[~2019-11-28 13:04] MED LIST changes: -TRAM50TA2 PO; +TRM50T PO
== END 2019-11-28 13:33 | disposition home or self-care (01) ==
PROVIDERS: ATTEND Internal Medicine
DX: M54.5 Low back pain (principal)

== ENCOUNTER 2020-04-11 16:53 | Emergency (ER) | payer MEDICARE ==
[~2020-04-11] VITALS: Ht 162.6 cm; Wt 59.4 kg
[~2020-04-11 16:53] MED LIST changes: -TRAZ-190 PO; +TRAZ-227 PO
[2020-04-11] MEDS ORDERED: CLINDAMYCIN 900 MG/50 ML IVPB 50 ML IV ONE (17:15)
[2020-04-11] MEDS ORDERED: ACETAMINOPHEN 500 MG TAB (TYLENOL) PO ONE (17:15)
[2020-04-11] MEDS ORDERED: methylPREDNISolone 40 MG/ML (Solu-MEDROL) VIAL IV ONE (17:15)
--- NOTE | 2020-04-11 17:20 | ED EENT ---
History of Present Illness General Chief Complaint: Fever-Adult/Adol Stated Complaint: SORE THROAT, TONSIL SWOLLEN, DIZZINESS, FEVER Source: patient Exam Limitations: no limitations History of Present Illness Date Seen by Provider: April 11, 2020 Time Seen by Provider: 17:16 Initial Comments To ER with c/o sore throat since Tuesday (today is Tuesday). Has since developed a fever up to 102 last night. No cough, no shortness of breath. Saw Dr Vazquez's N P yesterday and received toradol shot and amoxil prescription. Comes in today with c/o increased pain when swallowing. Timing/Duration: abrupt Severity: moderate Location: throat Prearrival Treatment: no prearrival treatment Associated Symptoms: No cough, No facial pain/swelling; sore throat Allergies and Home Medications Allergies Coded Allergies: ciprofloxacin (Verified Allergy, Intermediate, RASH, 10/17/18) erythromycin base (Verified Allergy, Intermediate, RASH, 10/17/18) nitrofurantoin (Verified Allergy, Intermediate, GI UPSET, 10/17/18) cefdinir (Verified Allergy, Mild, BODY PAIN, GI UPSET, 10/17/18) Uncoded Allergies: Chloraprep (Allergy, Intermediate, RASH, 10/26/18) Patient reports hives around surgical site from prep. SULFA (Allergy, Intermediate, GI UPSET, 05/11/17) Home Medications Fluvoxamine Maleate 100 Mg Tablet, 100 MG PO DAILY, (Reported) Levothyroxine Sodium 75 Mcg Tablet, 75 MCG PO DAILY, (Reported) Lorazepam 1 Mg Tablet, 2 MG PO HS, (Reported) Tramadol HCl 50 Mg Tablet, 50 MG PO Q12H PRN for PAIN-MILD TO MODERATE Prescribed by: KRZYSZTOF HARRISON on 10/20/18 1057 Trazodone HCl 100 Mg Tablet, 50 MG PO HS, (Reported) Patient Home Medication List Home Medication List Reviewed: Yes Review of Systems Review of Systems Constitutional: see HPI, chills, fever Eyes: No Symptoms Reported Ears: See HPI, Pain Nose: no symptoms reported Mouth: no symptoms reported Throat: see HPI, pain Respiratory: no symptoms reported Cardiovascular: no symptoms reported Musculoskeletal: no symptoms reported Skin: no symptoms reported Neurological: No Symptoms Reported Hematologic/Lymphatic: No Symptoms Reported Immunological/Allergic: no symptoms reported Past Qgemjhn-Wptdvo-Tivoho Hx Patient Social History Recent Foreign Travel: No Contact w/Someone Who Travel: No Recent Hopitalizations: No Physical Abuse: No Sexual Abuse: No Mistreated: No Fear: No Immunizations Up To Date Date of Pneumonia Vaccine: Jul 31, 2018 Date of Influenza Vaccine: Sep 21, 2011 Seasonal Allergies Seasonal Allergies: No Past Medical History Surgeries: Yes (R CTR, BASAL CELL FACE X2, CERVIAL CERCLAGE) Gallbladder, Hysterectomy, Thyroidectomy Respiratory: No Cardiac: Yes (MIRTAL VAVLE PROLAPSE, ) Palpitations Neurological: Yes Headaches /Migraines Reproductive Disorders: No P[employer]ILL [employer]GER History: Hysterectomy Sexually Transmitted Disease: No HIV/AIDS: No UTI-Chronic Gastrointestinal: Yes (FATTY LIVER) Gastroesophageal Reflux, Irritable Bowel Musculoskeletal: Yes (HX COMP FX T7) Arthritis, Back Injury, Chronic Back Pain Endocrine: Yes (GRAVES DISEASE) Loss of Vision: Bilateral Hearing Impairment: Denies 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 Physical Exam Vital Signs Vital Signs - First Documented 04/11/20 16:54 Temp 38.8 Pulse 85 Resp 18 B/P (MAP) 126/80 (95) O2 Delivery Room Air Height, Weight, BMI Height: 5'4.00" Weight: 137lbs. 0.0oz. 62.565258dc; 23.5 BMI Method: General Appearance: WD/WN, no apparent distress Eyes: bilateral eye normal inspection, bilateral eye PERRL, bilateral eye EOMI Ears: bilateral ear auricle normal, bilateral ear canal normal, bilateral ear TM normal Mouth/Throat: tonsillar swelling, other (there is unilateral right sided tonsil and peritonsillar swelling consistent with peritonsillar abscess. The uvula is deviated to the left. No stridor. Swallowing her own secretions. "Hot potato" voice noted) Neck: non-tender, full range of motion Respiratory: normal breath sounds, no respiratory distress, no accessory muscle use Gastrointestinal: normal bowel sounds, non tender, soft Neurologic/Psychiatric: alert, normal mood/affect, oriented x 3 Skin: normal color, warm/dry Progress/Results/Core Measures Results/Orders Lab Results Laboratory Tests Test 04/11/20 17:11 5/22/20 17:38 Range/Units White Blood Count 14.5 H 4.3-11.0 10^3/uL Red Blood Count 4.13 L 4.35-5.85 10^6/uL Hemoglobin 12.5 11.5-16.0 G/DL Hematocrit 36 35-52 % Mean Corpuscular Volume 87 80-99 FL Mean Corpuscular Hemoglobin 30 25-34 PG Mean Corpuscular Hemoglobin Concent 35 32-36 G/DL Red Cell Distribution Width 14.3 10.0-14.5 % Platelet Count 297 130-400 10^3/uL Mean Platelet Volume 9.0 7.4-10.4 FL Neutrophils (%) (Auto) 75 42-75 % Lymphocytes (%) (Auto) 12 12-44 % Monocytes (%) (Auto) 13 H 0-12 % Eosinophils (%) (Auto) 0 0-10 % Basophils (%) (Auto) 0 0-10 % Neutrophils # (Auto) 10.9 H 1.8-7.8 X 10^3 Lymphocytes # (Auto) 1.8 1.0-4.0 X 10^3 Monocytes # (Auto) 1.9 H 0.0-1.0 X 10^3 Eosinophils # (Auto) 0.0 0.0-0.3 10^3/uL Basophils # (Auto) 0.0 0.0-0.1 10^3/uL Neutrophils % (Manual) 77 % Lymphocytes % (Manual) 15 % Monocytes % (Manual) 8 % Blood Morphology Comment NORMAL Sodium Level 131 L 135-145 MMOL/L Potassium Level 4.3 3.6-5.0 MMOL/L Chloride Level 98 98-107 MMOL/L Carbon Dioxide Level 25 21-32 MMOL/L Anion Gap 8 5-14 MMOL/L Blood Urea Nitrogen 6 L 7-18 MG/DL Creatinine 0.80 0.60-1.30 MG/DL Estimat Glomerular Filtration Rate > 60 BUN/Creatinine Ratio 8 Glucose Level 123 H 70-105 MG/DL Calcium Level 8.9 8.5-10.1 MG/DL Corrected Calcium 8.8 8.5-10.1 MG/DL Total Bilirubin 0.5 0.1-1.0 MG/DL Aspartate Amino Transf (AST/SGOT) 15 5-34 U/L Alanine Aminotransferase (ALT/SGPT) 13 0-55 U/L Alkaline Phosphatase 41 40-136 U/L C-Reactive Protein High Sensitivity 13.86 H 0.00-0.50 MG/DL Total Protein 7.3 6.4-8.2 GM/DL Albumin 4.1 3.2-4.5 GM/DL Group A Streptococcus Screen NEGATIVE NEGATIVE My Orders Orders - JOSE CASAS SLIDE MAKER Cbc With Automated Diff (04/11/20 16:57) Comprehensive Metabolic Panel (04/11/20 16:57) Ed Iv/Invasive Line Start (04/11/20 16:57) Rapid Strep A Screen (04/11/20 17:14) Ct Neck (Soft Tissue) W (04/11/20 17:14) Acetaminophen Tablet (Tylenol Tablet) (04/11/20 17:15) Clindamycin 900 Mg/50 Ml Ivpb (Cleocin P (04/11/20 17:15) Methylprednisolone Sod Succ (Solu-Medrol (04/11/20 17:15) Manual Differential (04/11/20 17:11) Hs C Reactive Protein (04/11/20 17:11) Iohexol Injection (Omnipaque 350 Mg/Ml 1 (04/11/20 18:00) Received Contrast (Hold Metformin- Contr (04/11/20 18:00) Sodium Chloride Flush (Catheter Flush Sy (04/11/20 18:00) Ns (Ivpb) (Sodium Chloride 0.9% Ivpb Bag (04/11/20 18:00) Medications Given in ED Current Medications Medications Dose Ordered Sig/Mayra Route Start Time Stop Time Status Last Admin Dose Admin Acetaminophen 1,000 mg ONCE ONCE PO 04/11/20 17:15 04/11/20 17:16 DC 04/11/20 17:30 1,000 MG Clindamycin Phosphate/Dextrose 50 ml @ 100 mls/hr ONCE ONCE IV 04/11/20 17:15 04/11/20 17:44 DC 04/11/20 17:31 100 MLS/HR Iohexol 100 ml ONCE ONCE IV 04/11/20 18:00 04/11/20 18:01 DC 04/11/20 18:13 75 ML Methylprednisolone Sodium Succinate 80 mg ONCE ONCE IV 04/11/20 17:15 04/11/20 17:16 DC 04/11/20 17:30 80 MG Sodium Chloride 10 ml NEEDED PRN IV 04/11/20 18:00 04/11/20 18:14 10 ML Sodium Chloride 100 ml ONCE ONCE IV 04/11/20 18:00 04/11/20 18:01 DC 04/11/20 18:13 80 ML Vital Signs/I&O 04/11/20 04/11/20 16:54 17:30 Temp 38.8 38.8 Pulse 85 Resp 18 B/P (MAP) 126/80 (95) O2 Delivery Room Air Departure Communication (Admissions) NAME: LUZMARIA ARCE [facility] REC#: [id number] PT STATUS: REG ER : 1945 PHYSICIAN: JOSE CASAS APRN ADMIT DATE: 04/11/20/ER Draft Date of Exam:04/11/20 CT NECK (SOFT TISSUE) W PROCEDURE: CT neck soft tissue with contrast. TECHNIQUE: Multiple contiguous axial images were obtained through the neck after the administration of contrast. Auto Exposure Controls were utilized during the CT exam to meet ALARA standards for radiation dose reduction. INDICATION: Neck pain. FINDINGS: No rim-enhancing discrete or appreciable drainable fluid collection is found however there is asymmetric oropharyngeal and hypopharyngeal mucosal edema and soft tissue swelling about the neck, greater right than left. The free edge of the epiglottis appeared unremarkable. The prevertebral and retropharyngeal spaces appeared unremarkable. There is some edematous distortion of the fat along the right parapharyngeal fat. The parotid and submandibular glands themselves appeared unremarkable. There are few scattered reactive lymph nodes in the right neck but no dominant carolynn mass. Supraclavicular fossa is unremarkable. The thyroid is surgically absent. Thoracic inlet and visualized pulmonary apices are unremarkable. IMPRESSION: 1. Features of tonsillitis/pharyngitis, asymmetric to the right, but no identifiable drainable fluid collection or mary abscess. No involvement of the retropharyngeal or prevertebral spaces and the free edge of the epiglottis appeared unremarkable. 2. Some scattered reactive cervical lymph nodes with previous thyroidectomy. Dictated on workstation # [id number] Dict: 04/11/20 1828 Trans: 04/11/20 1836 [id number] [id number] Interpreted by: MADELIN PULLIAM Electronically signed by: Impression Primary Impression: Peritonsillar abscess Disposition: HOME, SELF-CARE Condition: Stable Departure-Patient Inst. Decision time for Depature: 18:39 Referrals: EVELIN VAZQUEZ MD (PCP) Primary Care Physician CALVIN TALAVERA MD (Family) Primary Care Physician Patient Instructions: Sore Throat in Adults Add. Discharge Instructions: 1. Antibiotics as directed. 2. At the steroids as directed. Return to ER for any worsening. Follow-up with Dr. Vazquez next week. All discharge instructions reviewed with patient and/or family. Voiced understanding. Scripts Prednisone (Prednisone) 20 Mg Tab 40 MG PO DAILY, #8 TAB 0 Refills Prov: JOSE CASAS APRN 04/11/20 Copy Copies To 1: EVELIN VAZQUEZ MD, PETER J APRN April 11, 2020 17:20
[2020-04-11 17:24] LABS: BASOPHILS % (AUTO) 0 % (0-10); EOSINOPHILS % (AUTO) 0 % (0-10); HEMATOCRIT 36 % (35-52); HEMOGLOBIN 12.5 G/DL (11.5-16.0); LYMPHOCYTES # (AUTO) 1.8 X 10^3 (1.0-4.0); LYMPHOCYTES % (AUTO) 12 % (12-44); MEAN CORPUSCULAR HEMOGLOBIN 30 PG (25-34); MEAN CORPUSCULAR HGB CONC 35 G/DL (32-36); MEAN CORPUSCULAR VOLUME 87 FL (80-99); MONOCYTES # (AUTO) 1.9 X 10^3 (0.0-1.0); MONOCYTES % (AUTO) 13 % (0-12); NEUTROPHILS # (AUTO) 10.9 X 10^3 (1.8-7.8); NEUTROPHILS % (AUTO) 75 % (42-75); PLATELET COUNT 297 10^3/uL (130-400); RED CELL DISTRIBUTION WIDTH 14.3 % (10.0-14.5); WHITE BLOOD COUNT 14.5 10^3/uL (4.3-11.0)
[2020-04-11 17:40] LABS: ALBUMIN 4.1 GM/DL (3.2-4.5); CHLORIDE 98 MMOL/L (98-107); POTASSIUM 4.3 MMOL/L (3.6-5.0); SODIUM 131 MMOL/L (135-145)
[2020-04-11 17:41] LABS: CALCIUM 8.9 MG/DL (8.5-10.1)
[2020-04-11 17:43] LABS: GLUCOSE 123 MG/DL (70-105); TOTAL PROTEIN 7.3 GM/DL (6.4-8.2)
[2020-04-11 17:44] LABS: BILIRUBIN,TOTAL 0.5 MG/DL (0.1-1.0); CARBON DIOXIDE 25 MMOL/L (21-32)
[2020-04-11 17:46] LABS: ALKALINE PHOSPHATASE 41 U/L (40-136); GFR ESTIMATED > 60
[2020-04-11 17:47] LABS: BUN/CREATININE RATIO 8
[2020-04-11 17:49] LABS: ALANINE AMINOTRANSFERASE 13 U/L (0-55)
[2020-04-11] MEDS ORDERED: NS 100 ML (IVPB) BAG IV ONE (18:00)
[2020-04-11] MEDS ORDERED: CATHETER FLUSH 10 ML SYR IV PRN (18:00)
[2020-04-11] MEDS ORDERED: IOHEXOL 350 MG/ML 100 ML (OMNIPAQUE 350) VIAL IV ONE (18:00)
[2020-04-11] MEDS ORDERED: HOLD METFORMIN - RECEIVED CONTRAST 20 ML VIAL IV SCH (18:00)
[2020-04-11 18:06] LABS: NEUTROPHILS % (MANUAL) 77 %
[2020-04-11 18:07] LABS: LYMPHOCYTES % (MANUAL) 15 %; MONOCYTES % (MANUAL) 8 %; RBC MORPH NORMAL
--- NOTE | 2020-04-11 18:36 | Diagnostic Imaging Report ---
PROCEDURE: CT neck soft tissue with contrast. TECHNIQUE: Multiple contiguous axial images were obtained through the neck after the administration of contrast. Auto Exposure Controls were utilized during the CT exam to meet ALARA standards for radiation dose reduction. INDICATION: Neck pain. FINDINGS: No rim-enhancing discrete or appreciable drainable fluid collection is found however there is asymmetric oropharyngeal and hypopharyngeal mucosal edema and soft tissue swelling about the neck, greater right than left. The free edge of the epiglottis appeared unremarkable. The prevertebral and retropharyngeal spaces appeared unremarkable. There is some edematous distortion of the fat along the right parapharyngeal fat. The parotid and submandibular glands themselves appeared unremarkable. There are few scattered reactive lymph nodes in the right neck but no dominant carolynn mass. Supraclavicular fossa is unremarkable. The thyroid is surgically absent. Thoracic inlet and visualized pulmonary apices are unremarkable. IMPRESSION: 1. Features of tonsillitis/pharyngitis, asymmetric to the right, but no identifiable drainable fluid collection or mary abscess. No involvement of the retropharyngeal or prevertebral spaces and the free edge of the epiglottis appeared unremarkable. 2. Some scattered reactive cervical lymph nodes with previous thyroidectomy. Dictated by: Dictated on workstation # [id number]
[2020-04-11] MEDS ORDERED: PRD20T PO (18:40)
[2020-04-11 18:51] VITALS: BP 135/77
== END 2020-04-11 18:51 | disposition home or self-care (01) ==
LOC: EDUNIT# 16:53 → ER 16:56
DX: J36 Peritonsillar abscess (principal); F41.9 Anxiety disorder, unspecified; F32.9 Major depressive disorder, single episode, unspecified; Z88.1 Allergy status to other antibiotic agents; Z88.2 Allergy status to sulfonamides; Z85.828 Personal history of other malignant neoplasm of skin
CPT/HCPCS: 36415; 70491; 80053; 85007; 85027; 86141; 87430

== ENCOUNTER → 2020-05-08 | Outpatient (CLI) | payer MEDICARE ==
[~2020-05-08] MED LIST changes: +PRD20T PO
--- NOTE | 2020-05-08 10:10 | Diagnostic Imaging Report ---
INDICATION: Respiratory infection. TIME OF EXAM: 10:01 AM No prior studies are available for comparison. FINDINGS: The heart size is normal. The pulmonary vascularity is unremarkable. The lungs are clear. No infiltrate, effusion or pneumothorax is detected. IMPRESSION: No acute cardiopulmonary process is detected. Dictated by: Dictated on workstation # [id number]
== END ==
LOC: RAD 09:29
PROVIDERS: ATTEND Internal Medicine Endocrinology, Diabetes & Metabolism
DX: J98.8 Other specified respiratory disorders (principal)
CPT/HCPCS: 71046

== ENCOUNTER → 2020-05-13 | Outpatient (CLI) | payer MEDICARE ==
--- NOTE | 2020-05-13 09:23 | Diagnostic Imaging Report ---
INDICATION: Routine screening. Comparison is made with prior mammogram from 08/19/2017 and 01/30/2014. 2-D and 3-D bilateral screening mammography was performed with CAD. Both breast remain heterogeneously dense, limiting the sensitivity of mammography. There are scattered benign calcifications in both breasts. No dominant mass or malignant appearing microcalcifications are identified. Axillae are unremarkable. IMPRESSION: BI-RADS Category 2 No mammographic features suspicious for malignancy are identified. ACR BI-RADS Category 2: Benign findings. Result letter will be mailed to the patient. Note: At least 10% of breast cancer is not imaged by mammography. Dictated by: Dictated on workstation # [id number]
--- NOTE | 2020-05-13 13:10 | Diagnostic Imaging Report ---
INDICATION: Postmenopausal female. COMPARISON: 10/27/2017. FINDINGS: AP Spine L2-L4: [BMD (g/cm2): 0.939] [T-Score: -2.2] [Z-Score: -0.3] [BMD Previous: 1.007] [BMD % Change: -6.8] LT Hip Neck: [BMD (g/cm2): 0.699] [T-Score: -2.4] [Z-Score: -0.5] LT Hip Total: [BMD (g/cm2):0.838] [T-Score:-1.3] [Z-Score: 0.4] [BMD Previous: 0.855] [BMD % Change: -2.0] RT Hip Neck: [BMD (g/cm2):0.741] [T-Score:-2.1] [Z-Score:-0.2] RT Hip Total: [BMD (g/cm2):0.583] [T-score:-1.2] [Z-Score:0.5] [BMD Previous:0.863] [BMD % Change:-1.2] *Indicates significant change from prior examination based on 95% confidence level. World Health Organization criteria for BMD interpretation classify patients as Normal (T-score at or above -1.0), Osteopenic (T-score between -1.0 and -2.5) or Osteoporotic (T-score at or below -2.5). LIMITATIONS AND MODIFICATION: None. FRACTURE RISK (FRAX SCORE): The ten year probability of (%): Major Osteoporotic Fracture: [22.2] Hip Fracture: [6.1] IMPRESSION: 1. Osteopenia (Low bone mass). 2. Bone mineral density has decreased in the lumbar spine, as detailed above. 3. See below National Osteoporosis Foundation guidelines on when to potentially initiate pharmacologic therapy. Based on the National Osteoporosis Foundation Guidelines, pharmacologic treatment should be initiated in any of the following, unless clinical conditions suggest otherwise: * Any patient with prior fragility fracture of the hip or vertebrae. A spine fracture indicates 5X risk for subsequent spine fracture and 2X risk for subsequent hip fracture. * Osteoporosis (T-score <-2.5). * Postmenopausal women and men age 50 and older with low bone mass/osteopenia (T-score between -1.0 and -2.5) by DXA and 10-year major osteoporotic fracture greater than 20% or a 10-year probability of hip fracture greater than 3%. These fracture risks are supplied above in the FRAX score, if applicable. * Clinician judgement and/or patient preferences may indicate treatment for people with 10-year fracture probabilities above or below these levels. Dictated by: Dictated on workstation # [id number]
== END ==
LOC: RAD 07:59
PROVIDERS: ATTEND Internal Medicine Endocrinology, Diabetes & Metabolism
DX: Z12.31 Encounter for screening mammogram for malignant neoplasm of breast (principal); M85.89 Other specified disorders of bone density and structure, multiple sites; Z78.0 Asymptomatic menopausal state
CPT/HCPCS: 77063; 77067; 77080

== ENCOUNTER 2021-07-08 11:35 | Outpatient (RCR) | payer MEDICARE | END 2021-07-08 12:15 | disposition home or self-care (01) | PROVIDERS: ATTEND Internal Medicine | DX: M25.512 Pain in left shoulder (principal); M54.2 Cervicalgia; F32.9 Major depressive disorder, single episode, unspecified; M81.0 Age-related osteoporosis without current pathological fracture; E05.00 Thyrotoxicosis with diffuse goiter without thyrotoxic crisis or storm ==

== ENCOUNTER → 2022-02-19 | Outpatient (CLI) | payer MEDICARE ==
[~2022-02-19] MED LIST changes: +FLUV100T21 PO; -FLUV100T3 PO; +METH-307 PO; -NF-METHI10 PO
--- NOTE | 2022-02-19 12:15 | Diagnostic Imaging Report ---
INDICATION: Routine screening. Comparison is made with prior mammogram from 05/13/2020 and 08/19/2017. 2-D and 3-D bilateral screening mammography was performed with CAD. Both breasts are heterogeneously dense, limiting the sensitivity of mammography. The parenchymal pattern is stable. No mass or malignant-appearing microcalcifications are seen. There are benign calcifications bilaterally. Axillae are unremarkable. IMPRESSION: BI-RADS Category 2 No mammographic features suspicious for malignancy are identified. ACR BI-RADS Category 2: Benign findings. Result letter will be mailed to the patient. Note: At least 10% of breast cancer is not imaged by mammography. Dictated by: Dictated on workstation # [id number]
== END ==
LOC: RAD 10:45
PROVIDERS: ATTEND Internal Medicine
DX: Z12.31 Encounter for screening mammogram for malignant neoplasm of breast (principal)
CPT/HCPCS: 77063; 77067

== ENCOUNTER → 2022-09-07 | Outpatient (CLI) | payer MEDICARE ==
--- NOTE | 2022-09-07 13:10 | Diagnostic Imaging Report ---
INDICATION: Postmenopausal state. COMPARISON: 05/13/2020. FINDINGS: AP Spine L1-L4: [BMD (g/cm2): 0.890] [T-Score: -2.6] [Z-Score: -0.7] [BMD Previous: 0.939] [BMD % Change: -5.2] LT Hip Neck: [BMD (g/cm2): 0.699] [T-Score: -2.4] [Z-Score: -0.5] LT Hip Total: [BMD (g/cm2):0.831] [T-Score:-1.4] [Z-Score: 0.4] [BMD Previous: 0.838] [BMD % Change: -0.8] RT Hip Neck: [BMD (g/cm2):0.753] [T-Score:-2.0] [Z-Score:-0.1] RT Hip Total: [BMD (g/cm2):0.835] [T-score:-1.4] [Z-Score:0.4] [BMD Previous:0.853] [BMD % Change:-2.1] *Indicates significant change from prior examination based on 95% confidence level. World Health Organization criteria for BMD interpretation classify patients as Normal (T-score at or above -1.0), Osteopenic (T-score between -1.0 and -2.5) or Osteoporotic (T-score at or below -2.5). LIMITATIONS AND MODIFICATION: None. FRACTURE RISK (FRAX SCORE): The ten year probability of (%): Major Osteoporotic Fracture: [23.2] Hip Fracture: [7.0] IMPRESSION: 1. Osteoporosis. 2. Bone mineral density within the lumbar spine has significantly decreased since the prior examination. Bone mineral density within the bilateral hips has not significantly changed since the prior exam. 3. See below National Osteoporosis Foundation guidelines on when to potentially initiate pharmacologic therapy. Based on the National Osteoporosis Foundation Guidelines, pharmacologic treatment should be initiated in any of the following, unless clinical conditions suggest otherwise: * Any patient with prior fragility fracture of the hip or vertebrae. A spine fracture indicates 5X risk for subsequent spine fracture and 2X risk for subsequent hip fracture. * Osteoporosis (T-score <-2.5). * Postmenopausal women and men age 50 and older with low bone mass/osteopenia (T-score between -1.0 and -2.5) by DXA and 10-year major osteoporotic fracture greater than 20% or a 10-year probability of hip fracture greater than 3%. These fracture risks are supplied above in the FRAX score, if applicable. * Clinician judgement and/or patient preferences may indicate treatment for people with 10-year fracture probabilities above or below these levels. Dictated by: Dictated on workstation # [id number]
--- NOTE | 2022-09-07 20:56 | Diagnostic Imaging Report ---
INDICATION: History of thyroidectomy. Follow-up for recurrent thyroid tissue. FINDINGS: Real-time imaging of the thyroid bed shows no evidence of recurrent thyroid tissue. No lymphadenopathy. IMPRESSION: No evidence of recurrent thyroid tissue. Dictated by: Dictated on workstation # [id number]
== END ==
LOC: RAD 11:05
PROVIDERS: ATTEND Internal Medicine Endocrinology, Diabetes & Metabolism
DX: M81.0 Age-related osteoporosis without current pathological fracture (principal); E05.00 Thyrotoxicosis with diffuse goiter without thyrotoxic crisis or storm; E55.9 Vitamin D deficiency, unspecified; E89.0 Postprocedural hypothyroidism; Z78.0 Asymptomatic menopausal state; Z90.89 Acquired absence of other organs; Z85.850 Personal history of malignant neoplasm of thyroid
CPT/HCPCS: 76536; 77080

== ENCOUNTER → 2023-02-23 | Outpatient (CLI) | payer MEDICARE ==
[~2023-02-23] MED LIST changes: +GADOTERATE 0.5 MMOL/ML (CLARISCAN) 15 ML VIAL IV ONE
--- NOTE | 2023-02-23 12:11 | Diagnostic Imaging Report ---
PROCEDURE: MR imaging cervical spine with and without contrast. TECHNIQUE: Multiplanar and multisequence MRI of the cervical spine was performed with and without contrast. INDICATION: History of thyroid cancer. Neck pain. Evaluate for metastatic disease. COMPARISON: 04/11/2020. FINDINGS: No acute fracture or dislocation in the cervical spine. There is edema and enhancement involving the left facet at the C3-C4 level. No masslike enhancement is seen in the cervical spine. The craniocervical junction is intact. The cervical spinal cord demonstrates normal intrinsic signal. No focal signal abnormalities are seen. No epidural collections. The brainstem and posterior fossa are unremarkable. Degenerative changes are seen in the cervical spine with posterior disc bulges, uncovertebral arthropathy, and buckling of the ligamentum flavum. Findings are greatest at the C5-C6 level with mild to moderate spinal canal narrowing and moderate right and moderate to severe left foraminal stenosis. The paraspinal soft tissues are unremarkable. IMPRESSION: 1. No acute fracture or dislocation in the cervical spine. 2. Edema and enhancement involving the left facet at the C3-C4 level, most suggestive of degenerative changes or synovitis. No osseous destructive changes are seen to suggest underlying mass. 3. No masslike enhancement is seen in the cervical spine. 4. No abnormal cord signal in the cervical spinal cord. 5. Multilevel degenerative changes, greatest at C5-C6. Dictated by: Dictated on workstation # [id number]
--- NOTE | 2023-02-23 12:21 | Diagnostic Imaging Report ---
Technique: Multiplanar multisequence MRI of the thoracic spine was performed with and without contrast. Reason for exam: History of thyroid cancer. Back pain. Evaluate for metastatic disease. Comparison: 11/19/2016. Findings: No acute fracture or dislocation in the thoracic spine. Benign hemangiomas are seen at the T1 and T2 levels. No abnormal enhancement is seen. No evidence of suspicious mass. Mild chronic height loss is seen in the superior endplate of T8. Modic type II endplate degenerative changes are present at the T10-T11 level. The thoracic spinal cord demonstrates normal intrinsic signal. No evidence of cord expansion. No epidural collections. No significant degenerative changes in the thoracic spine. No large disc bulges. No high-grade spinal canal or foraminal stenosis. Scattered hepatic cysts are again noted in the liver. The paraspinal soft tissues are unremarkable. IMPRESSION: 1. No acute fracture or dislocation in the thoracic spine. No abnormal enhancement. 2. No significant degenerative changes in the thoracic spine. No large disc bulges. 3. Modic type II endplate degenerative changes at the T10-T11 level. Dictated by: Dictated on workstation # [id number]
--- NOTE | 2023-02-23 12:28 | Diagnostic Imaging Report ---
PROCEDURE: MRI lumbar spine with and without contrast. TECHNIQUE: Multiplanar, multisequence MRI of the lumbar spine was performed with and without contrast. INDICATION: History of thyroid cancer. Low back pain. Evaluate for metastatic disease. COMPARISON: 09/28/2018. FINDINGS: 5 lumbar type vertebral bodies are visualized with the last well-formed disc space designated L5-S1. No acute fracture or dislocation is seen in the lumbar spine. Alignment is anatomic. Vertebral body heights and disc spaces are well-maintained. The bone marrow signal is normal. No abnormal enhancement is visualized. Benign hemangiomas are seen in the L1 and L5 vertebral bodies. The conus terminates at the L1 level. No masses are seen associated with the conus or nerve roots of the cauda equina. No epidural collections are identified. Multilevel degenerative changes are seen in the lumbar spine with disc bulges, facet hypertrophy, and buckling of the ligamentum flavum. T12-L1: No significant spinal canal or foraminal stenosis. L1-L2: No significant spinal canal or foraminal stenosis. L2-L3: Facet hypertrophy and buckling of ligamentum flavum results in no significant spinal canal narrowing and mild bilateral foraminal narrowing. L3-L4: Facet hypertrophy and buckling of the ligamentum flavum results in significant spinal canal narrowing and mild to moderate right and mild left foraminal narrowing. L4-L5: Broad-based disc bulge, facet hypertrophy, and buckling of the ligamentum flavum results in mild spinal canal narrowing and moderate bilateral foraminal stenosis. L5-S1: Broad-based disc bulge, facet hypertrophy, and buckling of the ligamentum flavum results in mild spinal canal narrowing and mild bilateral foraminal narrowing. Paravertebral soft tissues are unremarkable. IMPRESSION: 1. No acute fracture or dislocation in the lumbar spine. No abnormal enhancement. 2. Multilevel degenerative changes in the lumbar spine, greatest at L4-L5 and L5-S1. Dictated by: Dictated on workstation # [id number]
== END ==
LOC: RAD 09:07
PROVIDERS: ATTEND Nurse Practitioner Family
DX: M47.817 Spondylosis without myelopathy or radiculopathy, lumbosacral region (principal); M47.815 Spondylosis without myelopathy or radiculopathy, thoracolumbar region; M47.813 Spondylosis without myelopathy or radiculopathy, cervicothoracic region; Z85.850 Personal history of malignant neoplasm of thyroid; Z82.69 Family history of other diseases of the musculoskeletal system and connective tissue
CPT/HCPCS: 72156; 72157; 72158